=== PATIENT | female | born 1955 | race Caucasian/White ===

== ENCOUNTER 2019-06-09 09:52 | Outpatient (CLI) | payer MEDICARE, MEDICAID, SELFPAY ==
--- NOTE | ~2019-06-09 | XR_ITS ---
EXAMINATION: XR shoulder RT min 2V EXAM DATE: 06/09/2019 10:26 INDICATION: No known recent injury provided at this time. Pain of the right shoulder. TECHNIQUE: The following right shoulder projections obtained: frontal projection with internal rotati on, frontal projection with external rotation, Grashey, and axillary (4+ views). There is no prior s tudy for comparison. FINDINGS: Cervical fusion hardware. No evidence of right shoulder rotator cuff calcific tendinosis. There is mild to moderate glenohumeral, moderate acromioclavicular joint primary osteoarthritis. The re are no acute fractures or dislocations identified. There is no subcutaneous gas. The soft tissue is unremarkable. IMPRESSION: Mild to moderate right shoulder osteoarthritis. Reviewed, dictated and finalized at location B.
== END 2019-06-09 09:53 | disposition home or self-care (01) ==
PROVIDERS: PCP Internal Medicine Gastroenterology; Visit Provider Internal Medicine Gastroenterology
DX: M25.511 Pain in right shoulder (principal); M19.011 Primary osteoarthritis, right shoulder
CPT/HCPCS: 73030

== ENCOUNTER 2022-09-18 07:00 | Outpatient (CLI) | payer MEDICARE, MEDICAID, SELFPAY ==
--- NOTE | ~2022-09-18 | XR_ITS ---
Right Hand Technique: PA, oblique, and lateral views were obtained. Clinical History: Pain and swelling Findings: No acute fracture or dislocation is seen. Osseous alignment is anatomic. There is mild to m oderate degenerative change at the first metacarpophalangeal joint. There is mild degenerative change of the third PIP joint. Remaining joint spaces are preserved. Soft tissues are unremarkable. Impression: Mild to moderate degenerative change of the first metacarpophalangeal joint. Mild degenerative change of the third PIP joint. Reviewed, dictated and finalized at location M. Impression: Mild to moderate degenerative change of the first metacarpophalangeal joint. Mild degenerative change of the third PIP joint.
--- NOTE | ~2022-09-18 | CT_ITS ---
Clinical Indication: Hemorrhage of rectum, abdominal pain, lung mass CT Scan of the Chest, Abdomen, and Pelvis with Contrast: Technique: Contiguous sections were acquired throughout the chest, abdomen, and pelvis after intraven ous administration of 100 cc of Omnipaque 350. Dose reduction technique was used on this scan by uti иринаing automated exposure control and iterative reconstruction technique. The dose-length product (DL P) was 510.06 mGy-cm. COMPARISON: 04/15/2019 Findings: There is no evidence of any significant mediastinal, hilar or axillary lymphadenopathy. Coronary tara ry calcification are present. Pacemaker device in place. Mediastinal vascular structures otherwise ar e unremarkable. There is no evidence of pleural or pericardial effusion. Probable chronic scarring or atelectasis at the right middle lobe and lingula. No suspicious pulmonar y nodule evident. Minimal central intrahepatic biliary prominence may be related to prior cholecystectomy. Stable mild prominence of the main pancreatic duct noted. The spleen, adrenals and kidneys are within normal limi ts. There are atherosclerotic calcifications of the aorta. No lymphadenopathy. No bowel obstruction or bowel wall thickening. There is no evidence to suggest acute appendicitis. Urinary bladder is unremarkable. No pelvic mass evident. No ascites. Impression: No significant pulmonary abnormality or nodule seen. Minimal central intrahepatic biliary prominence may be related to prior cholecystectomy. Stable minimal prominence of the main pancreatic duct. Reviewed, dictated and finalized at [facility]. Impression: No significant pulmonary abnormality or nodule seen. Minimal central intrahepatic biliary prominence may be related to prior cholecy stectomy. Stable minimal prominence of the main pancreatic duct.
[2022-09-18 08:05] LABS: Estimated Glomerular Filt Rate > 60
== END 2022-09-18 07:01 | disposition home or self-care (01) ==
PROVIDERS: PCP Internal Medicine Gastroenterology; Visit Provider Nurse Practitioner Family
DX: K62.5 Hemorrhage of anus and rectum (principal); R10.9 Unspecified abdominal pain; M19.041 Primary osteoarthritis, right hand
CPT/HCPCS: 36415; 71260; 73130; 74177; 80053; 85027; 85652; 86140; Q9967

== ENCOUNTER 2022-09-18 11:27 | Outpatient (CLI) | payer MEDICARE, MEDICAID, SELFPAY ==
[2022-09-18 07:51] LABS: Hematocrit 42.8 % (37.0-47.0); Hemoglobin 13.7 g/dL (12.0-15.0); Mean Corpuscular Hemoglobin 29.5 pg (26-34); Mean Corpuscular Volume 92.2 fl (80-100); Mean Platelet Volume 11.3 fl (7.4-10.4); Platelet Count Result 206 k/mm3 (150-375); Red Blood Count 4.64 M/mm3 (4.2-5.4); Red Cell Distribution Width 14.4 % (11.5-14.5); White Blood Count 5.8 K/mm3 (4.5-10.0)
[2022-09-18 08:27] LABS: Erythrocyte Sedimentation Rate 10 mm/hr (0-20)
[2022-09-18 08:34] LABS: Alanine Aminotransferase 16 U/L (6-35); Albumin Level 4.3 g/dL (3.5-5.1); Alkaline Phosphatase 84 U/L (38-126); Anion Gap 6 mmol/L (8-16); Aspartate Amino Transferase 24 U/L (14-36); Bilirubin,Total 0.4 mg/dL (0.2-1.3); Blood Urea Nitrogen 9 mg/dL (7-17); CRP < 0.5 mg/dL (<1.0); Calcium 8.8 mg/dL (8.4-10.2); Carbon Dioxide 26 mmol/L (22-30); Chloride 109 mmol/L (98-107); Estimated Glomerular Filt Rate > 60; Glucose 99 mg/dL (65-110); Potassium 4.3 mmol/L (3.4-5.0); Sodium 141 mmol/L (137-145)
== END 2022-09-18 11:28 ==
PROVIDERS: Nurse Practitioner Family; PCP Internal Medicine Gastroenterology; Visit Provider Internal Medicine Gastroenterology
DX: K62.5 Hemorrhage of anus and rectum (principal); R10.9 Unspecified abdominal pain; R91.8 Other nonspecific abnormal finding of lung field; S69.91XA Unspecified injury of right wrist, hand and finger(s), initial encounter; X58.XXXA Exposure to other specified factors, initial encounter
CPT/HCPCS: 36415; 80053; 85027; 85652; 86140

== ENCOUNTER 2025-01-01 08:17 | Outpatient (CLI) | payer MEDICARE, MEDICAID, SELFPAY ==
--- OUTSIDE RECORDS SUMMARY | 2025-01-01 09:02 | XMS_ITS | Clinical Summary ---
Author Organization [facility] Address [address] [place] [place] [address] Care Team Providers Care Poundmaster Name Role Phone Lora Cadet MD Primary Care Provider [phone] Source Comments [facility],non-owned Affiliates and Associated Physician Practices is amultiple site organization consisting of ambulatory clinics and hospital sitesin [place], [place], [place] and [place]. This disclosure is being madepursuant to the Care Everywhere program and may not contain all information available regarding this patient. Last updated 17.[facility] Allergies No known active allergies Medications * Be aware that medications may not be up to date on this document. Alwaysverify current medications with the patient. Multiple Vitamins-Mineral s (CENTRUM SILVER PO) Take 1 tablet by mouth once daily Active HYDROcodone-acet aminophen (NORCO) 10-325 MG tablet Take 1 (one) tablet by mouth every 6 hours as needed 06/30/2019 Active LINZESS 145 MCG capsule 03/20/2019 Active zolpidem (AMBIEN) 5 MG tablet Take 1 (one) tablet by mouth every 24 hours Active Eliquis 5 MG tablet TAKE 1 (ONE) TABLET BY MOUTH 2 TIMES DAILY 60 tablet 12/02/2021 Active metoprolol succinate XL 24hr (Toprol XL) 25 MG tablet Take 0.5 (one-half) tablet by mouth once daily 90 tablet 4 05/15/2022 Active citalopram (CeleXA) 10 MG tablet Take 1 (one) tablet by mouth once daily Active estradiol (Estrace) 1 MG tablet Take 1 (one) tablet by mouth once daily Active gabapentin (Neurontin) 300 MG capsule Active lamoTRIgine (LaMICtal) 100 MG tablet Active ondansetron (Zofran) 8 MG tablet Active hydroCHLOROthiaz valarie (Hydrodiuril) 25 MG tablet Take 1 (one) tablet by mouth once daily 90 tablet 3 07/18/2024 Active Active Problems Problem Noted Date Diagnosed Date Dysphagia 09/18/2020 Fatigue 04/03/2020 Cardiac pacemaker in situ 12/25/2019 Paroxysmal atrial fibrillation 09/26/2019 Overview (09/26/2019): Noted on device interrogation in 08/2019 Assessment & Plan (11/17/2019 1:57 PM CDT): She is quite symptomatic from this. Fortunately, she has responded very well to flecainide. She needs to continue flecainide and Eliquis, which I have refilled today to [facility] pharmacy. [id number] of at least 3 (age, gender, HTN). Can followup in 6 months. Assessment & Plan (09/26/2019 1:35 PM CDT): She is having paroxysmal episodes of afib. These appeared to be symptomatic (palpitations). We have initiated treatment with low dose metoprolol, which has seem to calm her symptoms. We also started on anticoagulation due to elevated [id number] of 3. # Cont metoprolol 25mg PO BID # Cont apixaban 5mg PO BID # F/u in 6 months Symptomatic bradycardia 08/18/2019 Assessment & Plan (11/17/2019 1:55 PM CDT): She has done well since PPM implantation in 08/15 Assessment & Plan (09/26/2019 1:34 PM CDT): I personally reviewed remote transmission from August 2019. 7.6% atrial paced. Patient reports symptoms have improved now with pacemaker. For the first several weeks, she had bad shoulder and neck pain, but this has resolved. Incision has also healed well without drainage. # [id number] remote transmission Vasovagal syncope 05/30/2019 Pain in joint of right shoulder 05/30/2019 COPD (chronic obstructive pulmonary disease) Hypertension, poor control 04/22/2019 Anxiety disorder 04/03/2019 Depressive disorder 04/03/2019 Cramp in limb 04/03/2019 Dizziness of unknown cause 04/03/2019 Hip pain 04/03/2019 Osteopenia 04/03/2019 Neck pain 04/03/2019 Pain in face 04/03/2019 Paresthesia of foot 04/03/2019 Paresthesia of hand 04/03/2019 Shoulder pain 04/03/2019 Vitamin D deficiency 04/03/2019 Abdominal bloating 02/15/2019 Abdominal pain 02/15/2019 Chest pain 01/20/2019 Heart palpitations 01/20/2019 Essential hypertension 10/20/2018 Insomnia 09/26/2018 Neuropathy 09/26/2018 Allergic rhinitis 07/09/2016 Degenerative polyarthritis 06/09/2016 Presence of other cardiac implants and grafts Deep vein thrombosis (DVT) 03/03/2016 Family history of heart disease 03/03/2016 Overview (11/21/2021): Father had MO at 62, mother cva Hyperlipidemia 03/03/2016 Shortness of breath 03/03/2016 Tobacco dependence syndrome 03/03/2016 Perceived hearing changes 12/25/2014 Overview (12/27/2021): IMO 2021 Update LPRD (laryngopharyngeal reflux disease) 01/21/20 13 Colon polyp 10/31/2012 Overview (04/03/2019): Overview: 08/15/14 Hyperplastic polyps but poor prep, repeat in 2 yrs with 2 day prep, Dr Olivia Repeat 08/15/16 Viral hepatitis C 09/12/2012 Overview (04/03/2019): Overview: Cured, dr morris Syncope and collapse Assessment & Plan (07/14/2019 2:50 PM CDT): The patient reports long history of syncope and associated pre-syncopal symptoms. These presyncopal symptoms correlate with slow HR 50-60 (see event monitor from Mar 2019). I suspect she is having symptomatic episodes of sinus bradycardia, and she will likely respond to a dual chamber PPM. # schedule for dual chamber PPM when feasible from logistical standpoint. Heart attack Heart murmur Overview (01/20/2019): /AI Full dentures Restless legs syndrome (RLS) Leg cramps Hand cramps Resolved Problems Problem Noted Date Diagnosed Date Resolved Date Diarrhea 02/15/2019 05/01/2019 Pharyngitis 12/05/2018 04/03/2019 Elevated blood-pressure read ing without diagnosis of hypertension 10/17/2018 04/03/2019 Pruritic disorder 10/17/2018 04/03/2019 Bronchopneumonia 06/01/2017 04/03/2019 Ex-smoker 06/01/2017 04/03/2019 Chest wall tenderness 04/22/20172019 H/O osteopenia 09/24/2014 04/03/2019 Overview (04/03/2019): Overview: Osteopenia dexa 04/12/12 under media Bilateral hips T -1.9, osteopenia l spine T 0.6 normal Constipation 10/13/2012 05/01/2019 History of morbid obesity Overview (01/20/2019): max weight 287 lbs Immunizations Immunization Administration Dates Next Due Deal Decor primary monoval ent 12+ yr 0.3mL Purple cap 07/08/2020,06/17/2020 FLU VACCINE QUAD IIV4 SPLIT 0.25 ML IM 0,12/31/2015 HEP A/HEP B 01/04/2014,08/18/2013,07/21/2013 INFLUENZA VACCINE, ADJUVANTE D, QUADR. (FLUAD QUADRIVALENT; 65Y+) (AIIV4) 12/11/2019 INFLUENZA VACCINE, HIGH-DOSE , QUADR. (FLUZONE HIGH-DOSE QUADRIVALENT; 65Y+), 0.7 ML (HD-IIV4) 01/24/2019 Pneumococcal Pcv13 Conj 01/24/2019,09/24/2014 Family History Medical History Relation Name Comments Other Brother Simpson's palsy Anxiety Disorder Father CAD (Coronary Artery Disease) Father Depression Father Other - Cardiac Father mi x 3, sudd en CAD (Coronary Artery Disease) Mother Depression Mother Other Mother suicide CAD (Coronary Artery Disease) Paternal Aunt Alcohol abuse Sister 1 Cirrhosis Sister 1 Renal Disease Sister 1 Anxiety Disorder Sister 2 angy Depression Sister 2 angy Sleep Disorder - Other Sister 2 angy alfred Brain Tumor Sister 3 Cancer - Other Sister 3 ?? Asthma Son CVA Neg Hx Cancer - Breast Neg Hx Cancer - Skin, Melanoma Neg Hx Cancer - Skin, Non Melanoma Neg Hx Eczema Neg Hx Hemophilia Neg Hx Psoriasis Neg Hx Relation Name Status Comments Brother Alive Father (Age 62) Maternal Grandfather Maternal Grandmother Mother Paternal Aunt Paternal Grandfather Paternal Grandmother Sister 1 Sister 2 angy Alive Sister 3 Alive Son Alive Social History Tobacco Use Types Packs/Day Years Used Date Smoking Tobacco: Former Cigarettes 0.5 43 1 973 - 2016 Smokeless Tobacco: Never Tobacco Cessation:Counseling Given: Not Answered Comments:quit age 20 when , restart in 30s for couple years then pick it up off and on Alcohol Use Standard Drinks/Week Comments Not Currently 0 (1 standard drink = 0.6 oz pure alcohol) drink off and on when younger, afraid of pass out spells-no ETOH few years and then holiday glass wine, none since 2017 AUDIT-C Answer Date Recorded Frequency of Alcohol Consumption Never 01/20/2019 Average Number of Drinks Not on file 019 Frequency of Binge Drinking Not on file 12/28 Overall Financial Resource Strain (CARDIA) Answe r Date Recorded Difficulty of Paying Living Expenses Not hard at all 04/03/2019 Hunger Vital Sign Answer Date Recorded Worried About Running Out of Food in the Last Ye ar Never true 04/03/2019 Ran Out of Food in the Last Year Not on file 04/03/2019 PRAPARE - Transportation Answer Date Re corded Lack of Transportation (Medical) No 04/03/2019 Lack of Transportation (Non-Medical) No 04/03/2019 Education Answer Date Recorded What is the highest level of school you have completed or the highest degree you have received? 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 on file Not on fi le Last Filed Vital Signs Vital Sign Reading Time Taken Comments Blood Pressure 144/70 08/09/2024 12:21 PM CDT Pulse 91 08/09/2024 12:21 PM CDT Temperature 36.8 C (98.2 F) 05/15/2022 10:20 AM HEEL PAINTER Respiratory Rate 18 08/19/2019 9:10 AM CDT Oxygen Saturation 99% 08/09/2024 12:21 PM CDT Inhaled Oxygen Concentration - - Weight 68.5 kg (151 lb) 06/01/2024 3:40 PM HEEL PAINTER Height 162.6 cm (5' 4) 06/01/2024 3:40 PM HEEL PAINTER Body Mass Index 25.92 06/01/2024 3:40 PM HEEL PAINTER Plan of Treatment Upcoming Encounters Date Type Department Care Team (Late st Contact Info) Description 03/01/2025 1:00 AM HEEL PAINTER Clinical Support [facility] - Cardiology [address] [address] 05/31/2025 1:00 AM HEEL PAINTER Clinical Support [facility] - Cardiology 1034 [facility], [address] [address] Health Maintenance Due Date Last Done Comments BONE DENSITY TESTING 1955 COLOGUARD (AGES 45-75) - COLON CA SCREENING 1955 COLON MONITORING 1955 COLONOSCOPY - COLON CA SCREENING 1953 CT COLONOGRAPHY - COLON CA SCREENING 1955 Colorectal Cancer Screening 1955 FIT - COLON CA SCREENING 1955 FLEX SIG - COLON CA SCREENING 1955 LIPID TESTING 1955 Opioid Medication Agreement - Annual 1955 DTAP/TDAP/TD VACCINES (1 - Tdap) 1972 ZOSTER VACCINE (1 of 2) 10/11/2003 Respiratory Syncytial Virus (RSV) Vaccine Pt: or over 60 yrs (1 - Risk 60-74 years 1-dose series) 2013 PNEUMOCOCCAL VACCINE 50+ (2 of 2 - PPSV23, PCV20, or PCV21) 03/21/2019 01/24/2019, 09/24/2014 MAMMOGRAM 11/28/2021 11/29/2019 DEPRESSION SCREENING 03/29/2024 MEDICARE AWV CALENDAR YEAR 2024 SCREENING FOR DIABETES 06/01/2024 0, 05/01/2019, 01/04/2014, Additional history exists COVID-19 VACCINE ( - season) 2024 07/08/2020, 06/17/2020 INFLUENZA VACCINE (#1) 2024 0, 12/11/2019, 01/24/2019, Additional history exists HEPATITIS B VACCINE Completed 01/04/2014, 08/18/2013, 07/21/2013 HEPATITIS C SCREENING Completed 01/04/2014 , 01/04/2014, 01/04/2014, Additional history exists HIB VACCINE Aged Out No longer eligi ble based on patient's age to complete this topic HPV VACCINE Aged Out No longer eligi ble based on patient's age to complete this topic MENINGOCOCCAL (Group B) VACCINE SHARED DECISION-MAKING Aged Out No longer eligible based on patient's age to complete this topic MENINGOCOCCAL GROUPS A/C/Y/W VACCINE Aged Out No longer eligible based on patient's age to complete this topic Medical Devices Implanted Type Area Sewer And Drain Technician Device Identifier Shelf Expiration Date Model / Serial / Lot Lead Cp Nv Pace 52cm Strd Elut Pltn Tamy - [id number] Implanted:Qty: 1 on 08/18/2019 by Ren Santos MD at [facility] Pacemaker Heart [employer] 05/18/2021 [id number] / [id number] / Description:RV LEAD Lead Cp Nv Pace 45cm Strd Elut Pltn Tamy - [id number] Implanted:Qty: 1 on 08/18/2019 by Ren Santos MD at [facility] Pacemaker Heart [employer] 05/22/2021 [id number] / [id number] / Description:RA LEAD Pacemkr Jessica Wirelessly Crd - [id number] Implanted:Qty: 1 on 08/18/2019 by Ren Santos MD at [facility] Pacemaker Heart [employer] 11/23/2020 [id number] / [id number] / Description:PACEMAKER Procedures Procedure Name Priority Date/Time Associated Diagnosis Comments CARDIAC PROCEDURE ORDER 11/27/2024 MAMMO BILAT SCREENING Routine 11/29/2019 3:23 PM CDT Screening breast examination BASIC METABOLIC PANEL (CALCIUM TOTAL) AM Draw 08/19/2019 5:00 AM CDT Symptomatic bradycardia HEPATITIS C RNA QUANTITATIVE Routine 01/04/2014 11:24 AM CDT from Last 3 Months or Most Recently Relevant to Health Maintenance Results * CARDIAC PROCEDURE ORDER (11/27/2024) Narrative 11/27/2024 Ordered by an unspecified provider. us Scanned Document CARDIAC SERVICES ORDERABLES Fin al Result * MAMMO BILAT SCREENING (11/29/2019 3:23 PM CDT) Anatomical Region Laterality Modality Breast Bilateral Mammography 12/21/2019 8:16 AM CDT Impressions 12/21/2019 8:19 AM CDT IMPRESSION: No mammographic evidence of malignancy. ASSESSMENT: BI-RADS Category 1: Negative mammogram. RECOMMENDATION: Annual screening mammograms are recommended. This report was electronically signed by QUOC HOLLY M.D. on 12/21/2019 8:19 AM . Narrative 12/21/2019 8:19 AM CDT Bilateral screening mammogram Date: 11/29/2019 3:24 PM Comparison: Multiple outside 3-D mammograms, most recently 04/28/2018 History: Screening mammogram. Technique: The breasts were imaged in multiple views using 3D tomosynthesis with reconstructed/synthetic images and CAD analysis. Findings: No suspicious mass, grouped microcalcification or architectural distortion is seen. The left mediolateral oblique projection was limited due to positioning difficulties with the left arm. No significant change is noted since the prior examination. Breast parenchymal density: There are scattered areas of fibroglandular density. This examination was subjected to CAD analysis. Lora Cadet MD MAMMO ORDERABLES Final Resul t * BASIC METABOLIC PANEL (CALCIUM TOTAL) (08/19/2019 5:00 AM CDT) BUN 10 7 - 26 mg/dL 08/19/2019 5:57 AM [facility] Creatinine 0.7 0.6 - 1.2 mg/dL 08/19/2019 5:57 AM [facility] Sodium 140 136 - 145 mmol/L 08/19/2019 5:57 AM [facility] Potassium 3.8 3.5 - 4.5 mmol/L 08/19/2019 5:57 AM [facility] Chloride 107 98 - 107 mmol/L 08/19/2019 5:57 AM [facility] CO2 25 22 - 29 mmol/L 08/19/2019 5:57 AM [facility] Glucose 104 70 - 115 mg/dL 08/19/2019 5:57 AM [facility] Calcium 8.4 8.4 - 10.2 mg/dL 08/19/2019 5:57 AM [facility] Anion Gap 12 8 - 18 08/19/2019 5:57 AM [facility] BUN/Creatinine Ratio 14 7 - 23 08/19/2019 5:57 AM [facility] Osmolality Calculated 289 270 - 300 mOsm/kg 08/19/2019 5:57 AM [facility] eGFR >60 >60 mL/min/1.7 3 m2 08/19/2019 5:57 AM [facility] Blood BLOOD SPECIMEN / Unknown Lab Venipuncture / Unknown 08/19/2019 5:00 AM CDT 08/19/2019 5:22 AM CDT Saji Camacho MD LAB - CHEMISTRY ORDERABLES Final Result [address] [address], [facility] [phone] * HEPATITIS C RNA QUANTITATIVE PCR (01/04/2014 11:24 AM CDT) Hepatitis C Virus RNA PCR Specimen: 1ml Serum Reference: [id number] Test: Hepatitis C RT-PCR (Quantitative) RESULT Not Detected Reference Range Not Detected INTERPRETATION The quantitative Hepatitis C viral RNA RT-PCR determination was performed on a serum sample and is reported in IU/ml. Hepatitis C viral RNA was not detected. COMMENT The Hepatitis C (HCV) viral RNA analysis utilized a serum sample, real-time reverse embroidery cutter PCR, and is reported as Not Detected/Detected (<50)/Quantity (IU/ml) or >35,000,000 IU/ml. The analytical sensitivity of the assay is 7 IU/ml (95% of samples with this HCV RNA level were detected). Values less than 7 IU/ml are reported as Not Detected (<7 IU/ml); values greater than 7 IU/ml and less than 50 IU/ml are reported as Detected (<50). The linear range is from 50 IU/ml to 35,000,000 IU/ml. Values greater than 35,000,000 IU/ml are reported as >35,000,000 IU/ml. The detection/quantita tion of HCV RNA in serum or plasma is based on the isolation of HCV RNA with reverse embroidery cutter of genomic HCV RNA followed by real-time PCR in the presence of a reference standard RNA. The standard ensures that RNA was isolated, that no general significant inhibitors of the RT-PCR process were present. This test was developed and its performance characteristics determined by the [facility] at [facility]. It has not been cleared or approved by the U.S. Food and Drug Administration. The FDA has determined that such clearance or approval is not necessary. This test is used for clinical purposes. It should not be regarded as investigational or for research. This laboratory is certified under the Clinical Laboratory Improvement Amendments of 1988 (CLIA-88) as qualified to perform high complexity clinical laboratory testing. Test performed at [facility], [address] [place] [id number] This case has been personally reviewed and interpreted by the attending (teaching) pathologist. Final Diagnosis performed by Heriberto Loredo PHD. Electronically signed 01/09/2014 [facility] Blood specimen (specimen) BLOOD SPECIMEN / Unknown 01/04/2014 11:24 AM CDT 01/04/2014 12:25 PM CDT Perez Morris MD LAB - CHEMISTRY ORDERABLES Kandi l Result [facility]) from Last 3 Months or Most Recently Relevant to Health Maintenance Insurance MEDICAID - [facility] UHC MANAGED MEDICARE ADV MEDICAID - [place] [facility] MANAGED MEDICARE ADV Advance Directives * Full Code (Latest Code Status on File) Date Activated Date Inactivated Comments 08/18/2019 10:44 AM 08/19/2019 11:23 AM Care Teams Poundmaster Relationship Specialty Start Date End Date Lora Cadet MD [address] [place] [address] PCP - General 07/27/17
--- OUTSIDE RECORDS SUMMARY | 2025-01-01 09:02 | XMS_ITS | Encounter Summary ---
Author Organization [facility] Address [address] [place] [address] Care Team Providers Care Threading Machine Tender Name Role Phone Lora Cadet MD Primary Care Provider [phone] Reason for Visit * Reason Onset Date Comments Stress Test 07/03/2024 Needing to Sched ule/ Returning Call Encounter Details Date Type Department Care Team (Late st Contact Info) Description 07/03/2024 Telephone [facility] - Centralized Scheduling [address] [place] [address] Tiffanie Cisneros Stress Test (Needing to Schedule/ Returning Call) Social History Tobacco Use Types Packs/Day Years Used Date Smoking Tobacco: Former Cigarettes 0.5 43 1 973 - 2016 Smokeless Tobacco: Never Comments:quit age 20 when pr egnant, restart in 30s for couple years then [...] PM CDT Legal Sex Female 6:20 AM INDUSTRIAL RELATIONS REPRESENTATIVE Gender Identity Female 01/06/2021 2:13 PM CDT Sexual Orientation Straight 01/06/2021 2: 13 PM CDT 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 Pt is returning your call.. she is a bit confused.. she said that she received numerous calls but every time she calls back- no-one remembers calling her.. but she will get the same call again the next day.. Also she was told something about, the test needing to be 'RECODED' before scheduling... I tried tocall you, but line was busy.. Please reach out to patient at your soonest convenience.. Thanks ! documented in this encounter Plan of Treatment Upcoming Encounters Date Type Department Care Team (Late st Contact Info) Description 03/01/2025 1:00 AM INDUSTRIAL RELATIONS REPRESENTATIVE Clinical Support [facility] - Cardiology [address] [facility], [facility] [address] [place] [address] 05/31/2025 1:00 AM INDUSTRIAL RELATIONS REPRESENTATIVE Clinical Support [facility] - Cardiology [address] [facility] [address] [place] [address] documented as of this encounter Visit Diagnoses Not on filedocumented in this encounter Care Teams Threading Machine Tender Relationship Specialty Start Date End Date Lora Cadet MD [address] [place] [address] PCP - General 07/27/17 documented as of this encounter
--- OUTSIDE RECORDS SUMMARY | 2025-01-01 09:02 | XMS_ITS | Encounter Summary ---
Author Organization [facility] Address [address] [facility] [place] [address] Care Team Providers Care Dehydration Unit Operator Name Role Phone Lora Cadet MD Primary Care Provider [phone] Reason for Visit * Reason Onset Date Comments MEDICATION REFILL 02/16/2020 Encounter Details Date Type Department Care Team (Late st Contact Info) Description 02/16/2020 Refill [facility] [address] [place] [address] Jillian Sherman, APNP-[employer] WORKER [address] [phone] MEDICATION REFILL Social History Tobacco Use Types Packs/Day Years [...] and then holiday glass wine, none since 2018 AUDIT-C Answer Date Recorded Frequency of Alcohol [...] PM CDT Legal Sex Female 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 Gender Identity Female 01/06/2021 2:13 PM CDT Sexual Orientation Straight 01/06/2021 2: 13 PM CDT 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 Not on file 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 Not on file Not on fi le documented as of this encounter Plan of Treatment Upcoming Encounters Date Type Department Care Team (Late st Contact Info) Description 03/01/2025 1:00 AM FARM LOAN REPRESENTATIVE Clinical Support [facility] - Cardiology [address] [facility], [place] [id number] [place] [address] 05/31/2025 1:00 AM FARM LOAN REPRESENTATIVE Clinical Support [facility] - Cardiology [address] [facility], [place] [address] [place] [address] documented as of this encounter Visit Diagnoses Not on filedocumented in this encounter Care Teams Dehydration Unit Operator Relationship Specialty Start Date End Date Lora Cadet MD [address] [place] [phone] PCP - General 07/27/17 documented as of this encounter
--- OUTSIDE RECORDS SUMMARY | 2025-01-01 09:02 | XMS_ITS | Data Portability ---
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 She reports pain for many years, getting progressively worse. She has a history of some sort of arthroscopic surgery back in the . She has pain over the front and medial aspects of the knee and has popping when she tries to move it or walk. She now has to use a cane to get around and is unable to stay as active as she wants to. She has previously tried a course of physical therapy and taking meloxicam without improvement. She inquires about getting injections because some of her friends had that with good results. 1+ effusion. Range of motion 5-130. She has tenderness over the medial joint line and also over the patella, with positive grind. Stable varus and valgus stress. Sensation intact to light touch, 2+ DP pulse. X-rays reviewed, demonstrating arthritis of the medial and patellofemoral compartments with joint space narrowing, sclerosis, osteophytes She has osteoarthritis of the knee. We will continue conservative management, since she has failed a course of PT and meloxicam, we discussed next step would be to consider cortisone injection. She wanted proceed with that tolerated well. We will leave follow-up open ended, she may call when she has recurrence of symptoms. The next step would be to either repeat the cortisone injection or discuss gel injections. She is in agreement with the plan. [email or web address] Not available 08/30/2023 10:32:41 11/03/2023 11/03/2023 67-year-old female presents for recheck of left knee. She reports pain for many years, getting progressively worse. At her last appointment we did a cortisone injection. She felt that this helped for about 2-3 weeks but has since worn off. She has done PT and taken meloxicam, which did not help. She is interested in trying gel injections. 1+ effusion. Range of motion 5-130. She has tenderness over the medial joint line and also over the patella, with positive grind. Stable varus and valgus stress. Sensation intact to light touch, 2+ DP pulse. She has osteoarthritis of the knee. We will continue conservative management, since she has failed a course of PT, meloxicam, and cortisone injection, we will try gel injections. We will order them through specialty pharmacy and they will be sent to her home. We will have her return once she receives the injections. She is in agreement with this plan. Not available 11/03/2023 11:05:09 11/26/2023 11/26/2023 67-year-old fema le presents for injection of the left knee. She reports pain for many years, getting progressively worse. She presents today for gel injection. She received the injection from specialty pharmacy and has brought it with her today. Exam unchanged since last visit. SynviscOne injection given without issue. We can see her back as needed for pain. Not available 11/26/2023 09:03:52 05/16/2024 05/16/2024 Assessment: Nicotine smoke: 1 ppd 1984-present (quit 6 years in between) = 35 pack years Cough Dyspnea Plan: The following were reviewed and explained to the patient: primary care/referral note Chest 2 views 07/14/22 RML consolidation Nicotine cessation counseling provided for 4 minutes. Petty for quitting nicotine include getting ready, getting support and encouragement, learning new skills and behaviors and being prepared to handle slips. Tips for dealing with cravings provided. Prevention of subsequent illnesses from nicotine addiction discussed. Comorbidities include but are not limited to hypertension, cerebrovascular disease, coronary heart disease, congestive heart failure, hyperlipidemia, COPD/asthma, peptic ulcer disease, esophagitis/gastri tis, and osteoporosis. Therapy options offered include: Quitting by total abstinence Receiving nicotine replacement therapy Undergoing hypnosis Filling a bupropion or varenicline prescription Enrolling in Quit For Life program Registering at [email or web address] Making a call to 8-150-OKNI-NOW ( ). A strong, clear, personalized message was given to the patient to quit smoking. The patient was urged to set a quit date. We discussed patient's barriers to quitting and I will be of assistance when patient is ready to quit. I encouraged patient to inform friends and family of plans to quit with a request for support. I encouraged the patient to remove all cigarettes from the environment. We reviewed any previous quit attempts and lessons learned from them. I encouraged total abstinence from smoking and advised the patient that drinking alcohol and/or associating with other smokers are associated with failure or relapse. Patient can enroll in [facility]'s smoking cessation class through Connie Pittman RN at . Enrollment is free and classes are held every wednesday of the month from 1:30 pm to 2:30 pm at the conference room next to the cafeteria on the ground floor. The [place] Preventive Services Task Force (USPSTF) recommends annual screening for lung cancer with low-dose computed tomography (LDCT) for adults aged 50 to 80 years who have a 20 pack-year smoking history and currently smoke or have quit within the past 15 years. The [employer] (ACS) similarly recommends screening for individuals aged 50 to 80 years with a 20 pack-year history of smoking. LDCT ordered. Cough/Dyspnea workup will be done as follows: Respiratory allergen panel for [facility] Serum IgE Serum total IgG, IgG1, IgG2, IgG3, IgG4 Jajvd-1-mwygwdvgya n phenotype and level TB stimulated gamma interferon B-type natriuretic peptide (BNP) Eosinophil count Complete pulmonary function testing (PFT). Continue budesonide-formote rol HFA 160/4.5 mcg 2 puffs BID. Gargle after use. The patient does not know how to accurately administer the inhaler. Today, the patient was shown how to take this medication. The proper technique for delivering this medication was instructed. The patient expressed a clear understanding and demonstrated back how to use this medication. Without the proper technique, the patient will not reap the benefits of the treatment as the contents of the inhaler will not reach the lower airways as intended to be. Adherence to therapy is advocated. Nonadherence may lead to treatment failure, further progression of the condition, and other complications. Hospitals admissions are often the result of individuals not taking prescription medications accurately. Alternatively, greater adherence to medication regimens have shown to lower rates of hospitalization and decrease total medical costs in patients with chronic medical conditions. Advocated influenza vaccination annually and pneumonia vaccination NNAMDI. Advocated weight loss through diet and exercise. Patient's ideal body weight according to height and gender is up to 130 lbs. Encouraged patient to adjust caloric intake to maintain/achieve ideal body weight, emphasizing on fruits, vegetables, whole grains, and fat-free or low-fat products. These include lean meats, poultry, fish, beans, eggs, and nuts and foods that are low in saturated fats, trans-fats, cholesterol, salt (sodium), and glycemic index. Stressed the importance of regular exercise up to the patient's capacity limits. In this case, we recommend 20 min daily walking, 2 days a week of resistance training. Patient to monitor BP daily and bring records to PCP for further management. Follow-up: 1 week after PFT and chest CT Not available 05/16/2024 15:02:50 Plan of Treatment Reminders Order Date Submit Date Provider Last Modified By Organization Details Last Modified Time Details Appointments Any 15 2024 08:45A M Ledy hernandez MD Not available Not available Not available Lab HbA1c (hemoglob in A1c), blood 2024 025 [email or web address] [facility], [address], [place], [address], 12/19/2024 15:55:53 microalbu min, urine 2024 025 [email or web address] [facility], [address], [place], [address], 12/19/2024 15:56:02 CMP, serum or plasma 2024 025 [email or web address] [facility], [address], [place], [address], 12/19/2024 15:54:56 CBC w/ auto diff [address], [facility], [address], [place], [address], 12/19/2024 15:55:06 lipid panel, serum [address], [facility], [address], [place], [address], 12/19/2024 15:55:18 TSH + free T4, serum [address], [facility], [address], [place], [address], 12/19/2024 15:55:31 vitamin D, 25-hydrox y, total, serum [address], [facility], [address], [place], [address], 12/19/2024 15:55:42 alpha-1-a ntitrypsi n (aat) phenotype , serum 2024 025 [place] [facility], [facility], [address], [place], [address], 12/29/2024 04:04:16 BNP (B-type natriuret ic peptide), serum or plasma 2024 025 [place] [facility], [facility] [address] [address], [address], [place], [address], 12/29/2024 04:04:16 ige, total, serum 2024 025 [place] [facility], [facility], [address], [place], [address], 12/29/2024 04:04:16 tb (M tuberculo sis), ifn-gamma constance, blood 2024 025 [facility], [address], [address], [place], [address], 12/29/2024 04:04:17 [address] subclasse s 1+2+3+4, serum 2024 025 [facility], [address], [address], [place], [address], 12/29/2024 04:04:17 respirato ry allergen panel, [facility] A, serum 2024 025 [facility], [address], [address], [place], [address], 12/29/2024 04:04:17 respirato ry allergen panel - [facility] b 2024 025 [facility], [address], [address], [place], [address], 12/29/2024 04:04:17 eosinophi ls, quant, blood 2024 025 [facility], [address], [address], [place], [address], 12/29/2024 04:04:17 Referral pulmonolo gist referral - Please call patient to schedule an appointme nt. Thank you. 2024 025 [email or web address] Elian Gamez MD, [address] [place], [address], 12/18/2024 16:53:41 pain managemen t referral - Please call patient to schedule an appointme nt. Thank you. 2024 025 ANA Vasquez MD, [address] [place], [address], 12/18/2024 16:20:38 gynecolog ist referral - Please call patient to schedule an appointme nt. Thank you. 2024 025 ANA Chang MD, [address] [facility] [address], [place], [address], 12/12/2024 12:16:29 Procedures knee aspiratio n/injecti on (PROC) 2023 024 [email or web address] In-Office Order, Internal Use Only DO Not Attach Compendium DO Not Attach Compendium, Do Not Delete/merge, [id number] 11/26/2023 08:50:59 injection /aspirati on joint/bur sa (PROC) 2023 024 [email or web address] 1 In-Office Order, Internal Use Only DO Not Attach Compendium DO Not Attach Compendium, Do Not Delete/merge, 08/30/2023 10:35:14 Surgeries None recorded. Imaging MAMMO, screening , digital, bilateral - Please call patient to schedule. [facility], [address] [facility], [place], [address], 12/11/2024 18:25:34 LDCT, chest, for lung cancer screening - Please call patient to schedule. 2024 025 [facility], [address] [facility], [place], [address], 12/11/2024 18:25:34 DEXA, axial skeleton - Please call patient to schedule. 2024 025 [facility], [address] [facility], [place], [address], 12/11/2024 18:25:34 LDCT, chest, for lung cancer screening - Please call patient to schedule. [address] [facility], [address], [place], [address], 06/21/2024 11:44:22 Medication Orders bupivacai ne HCl 0.5 % (5 mg/mL) injection solution 2023 024 [email or web address] 2 [facility]/Pharmacy #[id number], [address], [place], [address], 09/24/2023 14:13:02 Kenalog 10 mg/mL suspensio n for injection 2023 024 [email or web address] 2 [facility]/Pharmacy #[id number], [address], [place], [address], 09/24/2023 14:13:58 Patient TargetsNo targets recorded. Patient Instructions Encounter Date Encounter Id Patient Instructions Last Modified By Organization Details Last Modified Time 05/16/2024 [id number] complete PFT w/ post bronchodilator spirometry* - Please call patient to schedule. NPAN [id number] per payor portal, ref #[id number]. [email or web address] Not available 06/21/2024 11:43:10 12/11/2024 [id number] diabetic eye exam* ATHENAFAX Not availa ble 12/12/2024 18:01:09 Reason for Referral Darkroom Technician Referral for We woman health examination Please call patient to schedule an appointment. Thank you. Referring Physician: Ldey Edwards, Internal Medicine, Encounter Date: 12/11/2024 Glass Forming Engineer Referral for D yspnea on exertion Please call patient to schedule an appointment. Thank you. Referring Physician: Ledy Edwards Internal Medicine, Encounter Date: 12/11/2024 Pain Management Referral for Chronic pain Please call patient to schedule an appointment. Thank you. Referring Physician: Ledy Edwards Internal Medicine, Encounter Date: 12/11/2024 Results Created Date Observation Date Name Description Value Unit Range Abnormal Flag Note LastModifiedBy Organization Detail LastModifiedTime 05/16/19 25 07/14/2022 XR, chest , 2 view No observ ation record ed. BARCODE Not Available 2024 17:58:48 Result Notes None recorded. Problems Name Problem SNOMED Code Status Onset Date Resolution Date Notes Provider Name and Address Organization Details Recorded Time Osteopenia 953168356 Active Not Available [facility] 3 06:14:08 Essential hypertensi on 31830234 Active 2018 Ledy mckeon MD [address], [address], [place], [address] , [facility] 5 17:22:16 Chronic atrial fibrillati on 720630980 Active 2019 Not Available [facility] 3 06:14:08 Cardiac pacemaker in situ 319825262 Active 2019 Not Available [facility] 3 06:14:08 Adenomatou s polyp of colon 607969974 Active 2021 Not Available [facility] 3 06:14:08 Irritable bowel syndrome characteri zed by constipati on 054112288 Active 2021 Not Available [facility] 3 06:14:08 Osteoarthr itis of left knee joint 9108402222167 09 Active 2023 EDEN Bobby null, [facility] 4 08:57:21 Smoker 79773170 Active 2024 Ledy mckeon MD [address], [address], [place], [address] , [facility] 5 17:24:05 Vitamin D below reference range 395484517 Active 2024 Ledy mckeon MD [address], [address], [place], [address] , [facility] 5 17:22:29 Dyspnea on exertion 68586730 Active 2024 Ledy mckeon MD [address], [address], [place], [address] , [facility] 17:24:00 Insomnia 058227032 Active 2024 Ledy mckeon MD [address], [address], [place], [address] , [facility] 17:40:04 Chronic pain syndrome 882089744 Active 2024 Ledy mckeon MD [address], [address], [place], [address] , [facility] 17:41:25 Chronic pain 58702252 Active 2024 Ledy mckeon MD [address], [address], [place], [address] , [facility] 17:41:33 Allergic rhinitis 02432516 Active 2024 Ledy mckeon MD [address], [place], [address] , 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 Procedures Surgical History Date Name Laterality Status Provider Name and Address Organization Details Recorded Time 11/26/19 24 Synvisc Injection completed Sophie Ghosh NP [address], [address], [place], [address], [facility] 11/26/2023 09:04:18 08/30/19 24 Ortho - Cortisone Injection completed Huy Mejia MD [address], [address], [place], [address], [facility] 08/30/2023 10:32:50 Tonsillectomy completed Not Available [facility] 05/27/2022 06:10:51 Knee Surgery completed Not Available [facility] 05/27/2022 06:10:51 Back Surgery completed Not Available [facility] 05/27/2022 06:10:51 Gastric Bypass completed Not Available [facility] 05/27/2022 06:10:51 Arthroscopic Surgery completed Not Available [facility] 05/27/2022 06:10:51 Pacemaker completed Margie Munguia MA [facility] 05/16/2024 14:27:42 Hy[address]rectomy completed [address] [facility] 12/11/2024 17:02:57 Imaging Results None recorded. Procedure Notes None recorded. Medical Equipment None Reported. Allergies Allergen ID Allergen Name Allergen Category Reaction Reaction Severity Criticality Documentation Date Start Date Code Code System Note Provider Name and Address Organization Details Recorded Time 96467 Cymbalta medicatio n abdominal pain nausea severe moderate Not available 05/27/2022 93753 4 RxNorm Not Available [facility] 06:18:21 Medications Name Sig Start Date Stop Date Status Note LastModified by Organization Details LastModified Time carisoprodo l 350 mg tablet TAKE 1 TABLET BY MOUTH TWICE A DAY 12/11 completed Not Available Not Available Not Available cyclobenzap rine 10 mg tablet 08/18 completed Not Available Not Available Not Available buspirone 5 mg tablet TAKE 1 TABLET BY MOUTH DAILY X7 DAYS, THEN 1 TABLET BY MOUTH TWICE DAILY 10/26 completed Not Available Not Available Not Available doxycycline hyclate 100 mg capsule 04/21 completed Not Available Not Available Not Available paroxetine 10 mg tablet 06/02 completed Not Available Not Available Not Available trazodone 50 mg tablet TAKE 1 TABLET BY MOUTH EVERY DAY AT BEDTIME 10/26 completed Not Available Not Available Not Available cetirizine 10 mg tablet TAKE 1 TABLET BY MOUTH EVERY DAY active Not Available Not Available No t Available atorvastati n 10 mg tablet 04/21 completed Not Available Not Available Not Available azithromyci n 250 mg tablet TAKE 2 TABLETS NOW AND 1 TABLET ON DAYS 2-5 02/28 completed Not Available Not Available Not Available alprazolam 1 mg tablet 08/18 completed Not Available Not Available Not Available benzonatate 200 mg capsule TAKE ONE CAPSULE EVERY EIGHT HOURS NEEDED FOR COUGH 12/11 completed Not Available Not Available Not Available citalopram 10 mg tablet TAKE 1 TABLET BY MOUTH EVERY DAY 05/16 completed Not Available Not Available Not Available hydrocodone 5 mg-acetamin ophen 325 mg tablet Take 1 tablet every 6 hours by oral route. 09/23 completed Not Available Not Available Not Available ondansetron HCl 8 mg tablet active Not Available Not Available Not Available meloxicam 15 mg tablet TAKE 1 TABLET BY MOUTH EVERY DAY 09/23 completed Not Available Not Available Not Available naltrexone 50 mg tablet active Not Available Not Available Not Available ondansetron HCl 4 mg tablet Take 1 tablet 3 times a day by oral route as needed. 08/21 completed Not Available Not Available Not Available bupivacaine HCl 0.5 % (5 mg/mL) injection solution Take 4 mL by injection route. 09/23 completed Not Available Not Available Not Available clonazepam 0.5 mg tablet Take 1 tablet twice a day by oral route. 08/21 completed Not Available Not Available Not Available lithium carbonate ER 300 mg tablet,exte nded release 08/21 completed Not Available Not Available Not Available triamcinolo ne acetonide 0.5 % topical ointment 04/11 completed Not Available Not Available Not Available amlodipine 2.5 mg tablet 04/21 completed Not Available Not Available Not Available prochlorper azine maleate 10 mg tablet active Not Available Not Available No t Available sulfamethox azole 800 mg-trimetho prim 160 mg tablet 04/11 completed Not Available Not Available Not Available hydrocodone 10 mg-acetamin ophen 325 mg tablet TAKE 1 TABLET BY MOUTH FOUR TIMES DAILY FOR CHRONIC PAIN active Not Available Not Available No t Available omeprazole 40 mg capsule,del ayed release TAKE 1 CAPSULE BY MOUTH EVERY DAY WITH FOOD 09/23 completed Not Available Not Available Not Available aspirin 81 mg tablet,catina yed release Take 1 tablet every day by oral route. 08/21 completed Not Available Not Available Not Available tramadol 50 mg tablet active Not Available Not Available No t Available triamcinolo ne acetonide 0.1 % topical cream APPLY THIN COAT TO AFFECTED AREA TWICE A DAY 04/11 completed Not Available Not Available Not Available butalbital- acetaminoph en-caffeine 50 mg-325 mg-40 mg tablet TAKE 1 TABLET BY MOUTH THREE TIMES A DAY NEEDED 09/23 completed Not Available Not Available Not Available lamotrigine 25 mg tablet active Not Available Not Available Not Available alprazolam 0.25 mg tablet TAKE 1 TABLET BY MOUTH THREE TIMES DAILY NEEDED 05/25 completed Not Available Not Available Not Available citalopram 20 mg tablet 20 MG ORALLY DAILY 09/23 completed Not Available Not Available Not Available prednisolon e acetate 1 % eye drops,suspe nsion 06/02 completed Not Available Not Available Not Available estradiol 1 mg tablet TAKE 1 TABLET BY MOUTH DAILY active Not Available Not Available No t Available oxycodone-a cetaminophe n 10 mg-325 mg tablet TAKE 1 TABLET BY MOUTH FOUR TIMES DAILY FOR CHRONIC PAIN 12/11 completed Not Available Not Available Not Available Kenalog 10 mg/mL suspension for injection Take 1 mL by injection route. 09/23 completed [facility]: [phone] Not Available Not Available Not Available baclofen 10 mg tablet active Not Available Not Available No t Available cephalexin 500 mg capsule TAKE 1 CAPSULE BY MOUTH TWICE A DAY 08/16 completed Not Available Not Available Not Available paroxetine 20 mg tablet Take 1 tablet every day by oral route. 10/26 completed Not Available Not Available Not Available triamcinolo ne acetonide 0.1 % topical ointment APPLY 1 GRAM TOPICALLY TO AFFECTED AREA TWICE A DAY 08/16 completed Not Available Not Available Not Available prednisone 50 mg tablet 04/21 completed Not Available Not Available Not Available hydroxyzine HCl 25 mg tablet TAKE 1 TABLET TWICE A DAY BY ORAL ROUTE NEEDED. 06/16 completed Not Available Not Available Not Available hydrochloro thiazide 25 mg tablet TAKE 1 TABLET BY MOUTH DAILY active Not Available Not Available No t Available zolpidem 5 mg tablet TAKE 1 TABLET BY MOUTH EVERY DAY NEEDED. NO ALCOHOL OR DRIVING,D O NOT TAKE WITH OPIATES active Not Available Not Available No t Available gabapentin 100 mg capsule TAKE 1 CAPSULE BY MOUTH TWICE A DAY active Not Available Not Available No t Available metoprolol succinate ER 25 mg tablet,exte nded release 24 hr TAKE 1/2 TABLET BY MOUTH DAILY 08/16 completed Not Available Not Available Not Available ergocalcife rol (vitamin D2) 1,250 mcg (50,000 unit) capsule TAKE 1 CAPSULE BY MOUTH ONE TIME PER WEEK 08/21 completed Not Available Not Available Not Available clobetasol 0.05 % topical ointment APPLY TO AFFECTED AREA TWICE A DAY FOR 4 WEEKS 09/23 completed Not Available Not Available Not Available ibuprofen 600 mg tablet TK 1 T PO Q 8 H PRN P TK WITH FOOD 08/21 completed Not Available Not Available Not Available polyethylen e glycol 3350 17 gram/dose oral powder DISSOLVE ONE CAPFUL IN TWO GLASSES OF CLEAR LIQUID AND DRINK EVERY 30 MINS X 6 DOSES 08/20 completed Not Available Not Available Not Available levofloxaci n 500 mg tablet 02/11 completed Not Available Not Available Not Available levofloxaci n 750 mg tablet TAKE ONE TABLET DAILY FOR SEVEN DAYS 12/11 completed Not Available Not Available Not Available zolpidem 10 mg tablet TAKE 1 TABLET BY MOUTH EVERY DAY 04/11 completed Not Available Not Available Not Available methylpredn isolone 4 mg tablets in a dose pack TAKE 6 TABLETS ON DAY 1 DIRECTED ON PACKAGE AND DECREASE BY 1 TAB EACH DAY FOR A TOTAL OF 6 DAYS 12/11 completed Not Available Not Available Not Available albuterol sulfate HFA 90 mcg/actuati on aerosol inhaler INHALE TWO PUFFS BY MOUTH EVERY 4 TO 6 HOURS NEEDED FOR SHORTNESS OF BREATH 12/11 completed Not Available Not Available Not Available hydrocodone 10 mg-acetamin ophen 650 mg tablet active Not Available Not Available No t Available Zoloft 25 mg tablet Take 1 tablet every day by oral route. 02/11 completed Not Available Not Available Not Available hydroxyzine HCl 10 mg tablet TAKE 1 TABLET BY MOUTH TWICE A DAY NEEDED 09/23 completed Not Available Not Available Not Available fluticasone propionate 50 mcg/actuati on nasal spray,suspe nsion INSTILL 1 SPRAY IN EACH NOSTRIL EVERY NIGHT BEFORE BED active Not Available Not Available No t Available sertraline 50 mg tablet TAKE 1 TABLET BY MOUTH EVERY DAY 05/16 completed Not Available Not Available Not Available lamotrigine 100 mg tablet active Not Available Not Available Not Available naproxen 500 mg tablet TAKE 1 TABLET BY MOUTH TWICE A DAY active Not Available Not Available No t Available amoxicillin 875 mg-potjarenu m clavulanate 125 mg tablet TAKE 1 TABLET ORAL ROUTE EVERY 12 HOURS FOR 10 DAYS 09/23 completed Not Available Not Available Not Available Actonel 35 mg tablet Take 1 tablet(s) EVERY WEEK by oral route at least 30 min before any food, drink or medicatio ns 02/11 completed Not Available Not Available Not Available ribavirin 200 mg tablet active Not Available Not Available Not Available metoprolol tartrate 25 mg tablet TAKE 1 TABLET BY MOUTH TWICE A DAY 08/16 completed Not Available Not Available Not Available duloxetine 30 mg capsule,del ayed release TAKE 1 CAPSULE BY MOUTH EVERY DAY 08/21 completed Not Available Not Available Not Available lactulose 10 gram/15 mL oral solution 08/20 completed Not Available Not Available Not Available Flovent HFA 44 mcg/actuati on aerosol inhaler INHALE 2 PUFFS BY MOUTH TWICE A DAY 09/23 completed Not Available Not Available Not Available ramelteon 8 mg tablet TAKE 1 TABLET EVERY DAY BY ORAL ROUTE NEEDED. 09/23 completed Not Available Not Available Not Available zolpidem ER 6.25 mg tablet,exte nded release,mul tiphase TAKE 1 TABLET BY MOUTH EVERYDAY AT BEDTIME 12/11 completed Not Available Not Available Not Available Amitiza 24 mcg capsule 08/18 completed Not Available Not Available Not Available budesonide- formoterol HFA 160 mcg-4.5 mcg/actuati on aerosol inhaler INHALE 2 PUFFS BY MOUTH TWICE A DAY 12/11 completed Not Available Not Available Not Available Golytely 236 gram-22.74 gram-6.74 gram-5.86 gram oral solution DIRECTED 10/26 completed Not Available Not Available Not Available levocetiriz ine 5 mg tablet 04/21 completed Not Available Not Available Not Available Synvisc-One 48 mg/6 mL intra-artic ular syringe Take 6 mL by intraarti cular route as directed, for left knee osteoarth ritis. 12/11 completed Not Available Not Available Not Available PEG-3350 with flavor packs 420 gram oral solution active Not Available Not Available Not Available Linzess 145 mcg capsule Take 1 capsule every day by oral route as needed for 90 days. 06/09 completed Not Available Not Available Not Available Linzess 290 mcg capsule TAKE 1 CAPSULE BY MOUTH DAILY BEFORE MEALS FOR 30 DAYS 10/26 completed Not Available Not Available Not Available Eliquis 5 mg tablet TAKE 1 TABLET BY MOUTH TWICE A DAY 06/16 completed Not Available Not Available Not Available Brisdelle 7.5 mg capsule Take 1 capsule every day by oral route. 02/11 completed Not Available Not Available Not Available Fluvirin 6966-7209 45 mcg (15 mcg x 3)/0.5 mL intramuscul ar suspension ADM 0.5ML UTD 04/21 completed Not Available Not Available Not Available Sovaldi 400 mg tablet active Not Available Not Available No t Available Belsomra 5 mg tablet TAKE 1 TABLET BY MOUTH EVERYDAY AT BEDTIME 09/23 completed Not Available Not Available Not Available Linzess 72 mcg capsule 04/21 completed Not Available Not Available Not Available Fluarix Quad 3133-0710 (PF) 60 mcg (15 mcg x 4)/0.5 mL IM syringe 04/21 completed Not Available Not Available Not Available Ibsrela 50 mg tablet Take 1 tablet twice a day by oral route. 06/16 completed Not Available Not Available Not Available Vitals Date Recorded Heart rate Heart rate Respiratory rate Provider Name and Address Organization Details Last Updated DateTime 05/16/2024 89 /min 89 /min 15 /min Elian Gamez MD [address] [facility] [address], [address], [facility] [employer] [place] 05/16/2024 15:03:35 Date Recorded Body height Body mass index (BMI) Body weight Body temperature Oxygen saturation Oxygen saturation in Arterial blood by Pulse oximetry Systolic And Diastolic Provider Name and Address Organization Details Last Updated DateTime 162.56 cm 26 kg/m2 09684.6 g 97.7 [degF] 98 % 98 % 128/72 mm[Hg] Margie Munguia MA [employer] 14:21:26 Date Recorded Body height Body mass index (BMI) Body weight Pain severity - 0-10 verbal numeric rating [Score] - Reported Provider Name and Address Organization Details Last Updated DateTime 08/30/2023 162.56 cm 24.9 kg/m2 80251.89 g 1 Maricruz Mane Liyah [facility] [employer] [facility] 08/30/2023 10:12:23 Date Recorded Body height Body mass index (BMI) Body weight Pain severity - 0-10 verbal numeric rating [Score] - Reported Provider Name and Address Organization Details Last Updated DateTime 11/03/2023 162.56 cm 25.4 kg/m2 91578.67 g 7 Maricruz Mane [facility] [employer] [facility] 11/03/2023 08:55:46 Date Recorded Body height Body mass index (BMI) Body weight Pain severity - 0-10 verbal numeric rating [Score] - Reported Provider Name and Address Organization Details Last Updated DateTime 11/26/2023 162.56 cm 25.2 kg/m2 85485.08 g 7 Maricruz Mane [facility] [employer] [facility] 11/26/2023 08:48:48 Date Recorded Body height Body mass index (BMI) Body weight Body temperature Heart rate Oxygen saturation Oxygen saturation in Arterial blood by Pulse oximetry Pain severity - 0-10 verbal numeric rating [Score] - Reported Systolic And Diastolic Provider Name and Address Organization Details Last Updated DateTime 162.56 cm 26.1 kg/m2 23035.0 4 g 98.4 [degF] 70 /min 98 % 98 % 7 140/80 mm[Hg] Margie Munguia MA [facility] [employer] [facility] 16:59:46 Social History Question Answer Notes LastModified by Organizat ion Details LastModified Time Tobacco Smoking Status Current Every Day Smoker Not Available [employer] 05/27/2022 06:10:21 Are You Blind Or Do You Have Difficulty Seeing? No [id number] Information not available 05/27/2022 What Is Your Level Of Caffeine Consumption? Moderate Information not available 05/16/2024 In The 14 Days Before Symptom Onset, Have You Had Close Contact With A Laboratory-confirm ed COVID-19 While That Case Was Ill? No Information n ot available 05/16/2024 In The 14 Days Before Symptom Onset, Have You Had Close Contact With A Person Who Is Under Investigation For COVID-19 While That Person Was Ill? No Information not available 05/16/2024 Are You Deaf Or Do You Have Serious Difficulty Hearing? No [id number] Information not available 05/27/2022 What Type Of Diet Are You Following? REGULAR [id number] Information not available 05/27/2022 Do You Have An Electrostatic Air Filter? No Information not available 05/16/2024 Have There Been Any Changes To Your Family Or Social Situation? No Information no t available 12/11/2024 Do You Have A Humidifier? Yes Information not available 05/16/2024 Do You Use Insect Repellent Routinely? No Information not available 12/11/2024 Where Do You Live? Apartment Inform ation not available 05/16/2024 Do You Have Moisture Problems In Your Home? No Information not available 05/16/2024 What Was The Date Of Your Most Recent Tobacco Screening? 12/11/2024 Information not available 12/11/2024 How Many Children Do You Have? 1 Information not available 05/16/2024 Do You Have Any Pets? Yes Information not available 05/16/2024 What Is Your Relationship Status? Information not available 12/11/2024 Do You Use Your Seat Belt Or Car Seat Routinely? Yes Information not available 05/16/2024 Do You Have Smoke And Carbon Monoxide Detectors In Your Home? Yes Information not available 05/16/2024 At What Age Did You Start Smoking Tobacco? 28 Information not available 05/16/2024 Are You Passively Exposed To Smoke? Yes Information no t available 05/16/2024 Are There Any Smokers In Your House? No Information not available 12/11/2024 How Much Tobacco Do You Smoke? 0.25 PPD Information not available 05/16/2024 Do You Use Sunscreen Routinely? No Information not available 05/16/2024 Have You Recently Traveled Abroad? No MIGRATION.[id number] Information not available 05/27/2022 Do You Have Difficulty Walking Or Climbing Stairs? No MIGRATION.[id number] Information not available 05/27/2022 Do You Have Any Dietary Restrictions? No Information not available 05/16/2024 Sex: Female Functional Status Question Answer Note LastModified by Organizat ion Details LastModified Time Do you use any illicit or recreational drugs? No Information not available 05/16/2024 Do you or have you ever used any other forms of tobacco or nicotine? No Information not available 05/16/2024 What is your level of alcohol consumption? None [email or web address] Information not available 11/03/2023 Are you currently employed? No Retired Information not available 05/16/2024 Have you been exposed to chemicals or toxins? No Not that aware of but lives in [place] Information not available 05/16/2024 Do you have transportation difficulties? No [id number].[id number] Information not available 05/27/2022 Are you able to walk independently without assistance or assistive devices? [employer]WOREST [id number].[id number] Information not available 05/27/2022 Do you have difficulty doing errands alone? No MIGRATION.[id number] Information not available 05/27/2022 Are you able to care for yourself independently? Yes MIGRATION.[id number] Information not available 05/27/2022 Do you have difficulty dressing, bathing, grooming, or toileting? No MIGRATION.[id number] Information not available 05/27/2022 What is your exercise level? None Information not available 05/16/2024 Mental Status Question Answer Note LastModified by Organizat ion Details LastModified Time Do you feel stressed (tense, restless, nervous, or anxious, or unable to sleep at night)? [id number] Information not available 05/16/2024 Do you have difficulty concentrating, remembering or making decisions? No [id number] 26 Information not available 05/27/2022 Family History Relationship Description Onset Age of this Age Resolved Age Notes LastModified by Organization Details LastModified Time Paternal Uncle Heart disease [email or web address] Not available 2024 14:46:47 Paternal Aunt Heart disease [email or web address] Not available 2024 14:46:51 Father Myocardial infarction [email or web address] Not available 05/16 14:47:14 Sister Hepatic failure [email or web address] Not available 2024 14:47:35 Sister Alcoholism Not available 05/16/2024 14:47:44 Sister Neoplasm of brain [email or web address] Not available 2024 14:47:57 Medical History Condition Response ARTHRITIS Y USE OF NSAIDS Y HEART ARRHYTHMIA Y Gynecological History Statement/Question Response How many live births 1 Date of Last Colonoscopy Date of Last Mammogram Date of LMP Most Recent Bone Density Date of Last Pap Current Control Method Hysterectom y Obstetrics History GPAL:G 1 P 1 0 0 1 Type Value Multiple Births 0 Full Term 1 Induced 0 Spontaneous 0 Premature 0 Living 1 Ectopics 0 Total 1 Immunizations Vaccine Type Date Status Note Provider Nam e and Address Organization Details Recorded Time Influenza, split virus, trivalent, preservative 3 completed Not Available [facility] 12/11/2024 16:39:53 Hep A-Hep B 4 completed Not Available [facility] 12/11/2024 16:39:53 Hep A-Hep B 4 completed Not Available [facility] 12/11/2024 16:39:53 Hep A-Hep B 4 completed Not Available [facility] 12/11/2024 16:39:53 Pneumococcal conjugate PCV 13 5 completed Not Available [facility] 12/11/2024 16:39:53 Influenza, split virus, quadrivalent, preservative 6 completed Not Available [facility] 12/11/2024 16:39:53 pneumococcal polysaccharide PPV23 7 completed Not Available [facility] 12/11/2024 16:39:53 Influenza, split virus, trivalent, PF 7 completed Not Available [facility] 12/11/2024 16:39:53 Influenza, split virus, quadrivalent, PF 8 completed Not Available [facility] 12/11/2024 16:39:53 Influenza, high-dose, trivalent, PF 9 completed Not Available [facility] 12/11/2024 16:39:53 Pneumococcal conjugate PCV 13 9 completed Not Available [facility] 12/11/2024 16:39:53 Influenza, split virus, quadrivalent, preservative 0 completed Not Available [facility] 12/11/2024 16:39:53 Influenza, high-dose, quadrivalent, PF 2 completed Not Available [facility] 12/11/2024 16:39:53 Pneumococcal conjugate PCV20, polysaccharide SOU762 conjugate, adjuvant, PF 3 completed Not Available [facility] 12/11/2024 16:39:53 Influenza, adjuvanted, quadrivalent, PF 3 completed Not Available [facility] 12/11/2024 16:39:53 COVID-19, mRNA, LNP-S, PF, 30 mcg/0.3 mL dose 1 completed Not Available [facility] 05/27/2022 06:18:09 COVID-19, mRNA, LNP-S, PF, 30 mcg/0.3 mL dose 1 completed Not Available [facility] 05/27/2022 06:18:09 pneumococcal, unspecified formulation 8 completed Not Available [facility] 05/27/2022 06:18:09 Influenza, split virus, quadrivalent, preservative 8 completed Not Available [facility] 05/27/2022 06:18:09 Past Encounters Encounter ID Performer Location Encounter Start Date Encounter Closed Date Diagnosis/Indication Diagnosis SNOMED-CT Code Diagnosis ICD10 Code Diagnosis IMO Codes Diagnosis Note [id number] _ATHN_MIGR ATION_1 _ATHENA_M IGRATION_ DEFAULT_1 _1 , 08/20/2021 00:00:00 08/20/2021 15:31:36 [id number] _ATHN_MIGR ATION_1 _ATHENA_M IGRATION_ DEFAULT_1 _1 , 02/04/2022 00:00:00 02/04/2022 14:50:36 [id number] Sophie Ghosh NP [facility] [address], [place] [phone] 10/26/2022 09:11:35 10/26/2022 10:03:14 Pain of bilateral hip joints [id number] 8693518 M25.551 M25.886 [id number] Huy Mejia MD [facility] [place] [address] [place] [address] 05/26/2023 13:46:41 05/26/2023 14:48:24 Pain of right hand 4523900453 89853 M79.641 Open fract ure finger distal phalanx, tuft 509184363 S62.639B [id number] MD THEO [facility] [place] [address] [place] [address] 06/04/2023 09:56:56 06/04/2023 10:16:54 Open fracture finger distal phalanx, tuft 622029534 S62.639B [id number] Huy Mejia MD [address], [facility] [address] [place] [address] 08/30/2023 10:07:12 08/30/2023 10:38:47 Pain of left knee joint 4337492432 21731 M25.225 [id number] Huy Mejia MD [address] [place] [address] [place] [address] 11/03/2023 08:43:10 11/03/2023 09:31:34 Pain of left knee joint 3825092961 60450 M25.562 Osteoarthr itis of left knee joint 7607557981 78211 M17.12 [id number] Huy Mejia MD [facility] [place] [address] [place] [address] 11/26/2023 08:45:20 11/26/2023 09:07:29 Osteoarthritis of left knee joint 1114071563 24145 M17.12 Lot [id number] MD THEO [facility] [address], [address] [place] [address] 05/16/2024 14:01:58 05/16/2024 15:27:15 Dyspnea on exertion 79341071 R06.09 R05.9 T78.40XA D89.9 Smoker 59145270 F17.218 F17.219 Z87.840 [id number] Ledy mckeon MD [facility] [place] [address] [facility] [address] [facility] [place] [address] 12/11/2024 16:38:19 12/11/2024 17:43:46 Screening due 562999997 Z13.9 [id number] C-scope: 09/16/2021 : Dr Wellington Mammogram: Get this if not done PAP: Get this DEXA: Get this Get yearly flu shotGet tdap if not doneCan do shingrix vaccineCan do COVID 19 boosterCan do RSV vaccine RTC in 3 months,do labs, ER if worse, she is very appreciati ve to this plan of care Screening mammography 24 920528 Z12.31 35757560 Postmenopausal state 764 75610 Z78.0 306360 Essential hypertension 92367334 I10 19266 On HCTZ 25mg dailyGet labs Sees her cardiologi st Dr Santos in [place] Vitamin D below reference range 795456837 R79.89 [id number] Well woman health examination 874186856 Z01.419 974519 History of irritable bowel syndrome 6720867505 9100 Z87.[id number] Wellington GI Dyspnea on exertion 6084 5006 R06.02 [id number] Does need to see pulmonary as she has seen him before Smoker 34618275 F17.200 987997 Advised to quit!Get LDCT done Insomnia 519768400 G47.0 0 [id number] Has taken ambien in the past, will renewShe is on opiates, advised to take sparingly as needed and she does state that he pain management MD has suggested she get back on the ambienShe was told that she may need to be on morphine for sleep but she does not want this Chronic pain 18042901 G8 9.[id number] Solano gabapentin On hydrocodon eUnderstan ds that she must get these thru her pain management History of endocrine disorder 413109822 Z87.898 [id number] Get labsNot on any meds Allergic rhinitis 327210 04 J30.9 [id number] On Sumaya alfaro Health Concerns Section Related Observation LastModified by Organization Detai ls LastModified Time None Recorded Concern Status LastModified by Organization Details LastModified Time None Recorded Advance Directives Directive None Recorded Payers Insurance Date Sequence Insurance Name Policy Number Policy Howard Covered Member ID Howard Member ID Guarantor Name 12/11/2024 1 [facility] (MEDICARE REPLACEMENT/AD VANTAGE - PPO) [id number] Fabi Sharmaine [id number] Fabi Sharmaine 12/11/2024 1 [facility] (MEDICARE REPLACEMENT/AD VANTAGE - HMO) Fabi Sharmaine [id number] Fabi Sharmaine 12/11/2024 2 [place] WHEN MEDICARE OR MEDICARE REPLACEMENT PRIMARY) Fabi Sharmaine [id number] Fabi Sharmaine Notes Date Note Type Note Provider Name and Address Organization Details Recorded Time text/html Primary care/Referring provider: Lora Jameson MD Patient is here to go over shortness of breath evaluation/management. Initial development of shortness of breath: 2023 Duration of shortness of breath: 1 year Condition of shortness of breath: worsening Timing of shortness of breath: early in the morning Frequency: up to 2 times a day Limits activities: yes Aggravating factors: walking, using arms cleaning Alleviating factors: rest Modified [employer] (mMRC) Dyspnea Scale - Grade 1 Grade 0 I only get breathless with strenuous exercise . Grade 1 I get short of breath when hurrying on the level or walking up a slight hill . Grade 2 I walk slower than people of the same age on the level because of breathlessness or have to stop for breath when walking at my own pace on the level . Grade 3 I stop for breath after walking about 100 yards or after a few minutes on the level . Grade 4 I am too breathless to leave the house or I am breathless when dressing . Treatment history: budesonide-formoterol HFA 160/4.5 mcg 2 puffs BID filled 03/2024, quit after 3 times due to heart racing side effects Other symptoms: Drooling: no Dysarthria: no Neck pain: no Odynophagia: no Dysphagia: no Weak mastication: no Facial weakness: no Nasal speech: no Protruding tongue: no Productive cough: clear Wheezing: no Chest tightness: yes Orthopnea: 3-pillow Frequent throat clearing or swallowing: yes Palpitations: no Heartburn: no Edema: no Environmental exposures: Nicotine smoke: 1 ppd 1984-present (quit 6 years in between) = 35 pack years [place]: no Dye: no Dust mites: yes Mold: no Damp basement: no Wood burning stove: no Animal dander: dog Cockroaches: no Pollen: yes Arsenic: no Asbestos: no Beryllium: no Cadmium: no Chromium: no [place] smoke: no Diesel fumes: no Nickel: no Silica: no Soot: no EPWORTH SLEEPINESS SCALE (ESS) CHANCE OF DOZING SCORE 0 = would never doze 1 = slight chance of dozing 2 = moderate chance of dozing 3 = high chance of dozing SITUATION AND CHANCE OF DOZING Sitting and reading - 0 Watching television - 0 Sitting inactive in a public place (e.g. a theater or meeting) - 0 As a passenger in a car for an hour without a break - 0 Lying down to rest in the afternoon when circumstances permit - 0 Sitting and talking to someone - 0 Sitting quietly after lunch without alcohol - 0 In a car, while stopped for a few minutes in the traffic - 0 TOTAL SCORE 0 Subjectively, patient has no chance of dozing. Elian Gamez MD [address] [facility], [place], [address], [employer] 05/16/2024 15:04:17 5 text/html OV 12/11/2024:Here to establish care Present Hx:HTNDOESmokerChronic painHx of prediabetesAllergies Here to discuss above and also to get labsShcastro does see her director online marketing in [place] Ledy Edwards MD [address], [place], [address], [employer] 12/11/2024 18:30:00 OBGyn Episode No OBEpisode recorded.
--- OUTSIDE RECORDS SUMMARY | 2025-01-01 09:02 | XMS_ITS | Encounter Summary ---
Author Organization 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 Gender Identity Female 01/06/2021 2:13 PM CDT [...] st Contact Info) Description 03/01/2025 1:00 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
--- OUTSIDE RECORDS SUMMARY | 2025-01-01 09:02 | XMS_ITS | Data Portability ---
Author Organization [facility] Address [address] [place] [address] Assessment No assessment recorded. Plan of Treatment Reminders Order Date Submit Date Provider Last Modified By Organization Details Last Modified Time Details Appointments None recorded. Lab CMP, serum or plasma 2023 024 [facility], [address] [place] [address], [place] [address], [place], [address], 4 13:11:51 lipid panel, serum 2023 024 [facility], [address] [facility], [facility] [address], [place], [address], 4 13:11:50 CBC 2023 024 [facility], [address] [place] [address], [facility] [address], [place], [address], 4 13:11:[address] referral 2024 025 clarice Gamez MD, [address] [place], [address], 5 14:29:40 Procedures None recorded. Surgeries None recorded. Imaging XR, thoracic spine - Attention to posterior upper area 2023 024 [facility] ([facility]), [address] [place], [address], 4 11:27:08 XR, chest, 2 view [address] ([facility]), [address], [place], [address], 5 11:21:39 Medication Orders zolpidem 5 mg tablet [address] [id number], [address], [place], [address], 5 10:58:04 gabapentin 100 mg capsule [address] [id number], [address], [place], [address], 5 10:58:03 zolpidem ER 6.25 mg tablet,exte nded release,[facility] 2024 025 [id number], [address], [place], [address], 5 10:54:08 gabapentin 100 mg capsule [address] [id number], [address], [place], [address], 5 12:45:50 Symbicort 160 mcg-4.5 mcg/actuati on HFA aerosol inhaler [address] [id number], [address], [place], [address], 5 15:54:44 citalopram 10 mg tablet [address] [id number], [address], [place], [address], 5 12:28:35 naproxen 500 mg tablet 2023 024 [id number], [address], [place], [address], 10:48:29 zolpidem ER 6.25 mg tablet,exte nded release,mul tiphase 2023 024 [email or web address] [facility] #[id number], [address], [place], [address], 10:54:08 zolpidem ER 6.25 mg tablet,exte nded release,mul tiphase 2023 024 [email or web address] [facility] #[id number], [address], [place], [address], 10:54:08 Patient TargetsNo targets recorded. Patient Instructions Encounter Date Encounter Id Patient Instructions Last Modified By Organization Details Last Modified Time 10/21/2023 [id number] allergies: care instructions [email or web address] Not available 10/21/2023 15:32:02 bronchitis: care instructions [email or web address] Not available 10/21/2023 15:32:02 headache: care instructions Not available 10/21/2023 15:32:02 A healthy lifestyle: care instructions [email or web address] Not available 10/21/2023 15:32:02 learning about high blood pressure [email or web address] Not available 10/21/2023 15:32:02 02/07/2024 [id number] bronchitis: care instructions [email or web address] Not available 02/07/2024 16:16:00 learning about high blood pressure Not available 02/07/2024 16:25:50 04/10/2024 [id number] allergies: care instructions Not available 04/10/2024 15:54:39 bronchitis: care instructions [email or web address] Not available 04/10/2024 15:54:39 coughing up blood: care instructions Not available 04/10/2024 15:54:39 insomnia: care instructions [email or web address] Not available 04/10/2024 15:54:39 learning about high blood sugar Not available 04/10/2024 15:54:39 learning about high blood pressure [email or web address] Not available 04/10/2024 15:54:39 05/30/2024 [id number] neuropathic pain : care instructions [email or web address] Not available 05/30/2024 12:45:48 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 . Smoker over thirty years ago Referring Physician: Lora Cadet, Internal Medicine, Encounter Date: 04/10/2024 Results Created Date Observation Date Name Description Value Unit Range Abnormal Flag Note LastModifiedBy Organization Detail LastModifiedTime 09/27/19 24 10/02/2023 COMPL IANCE DRUG JAIDEN SIS, UR summary report (summary) FINAL ===== ===== ===== ===== ===== ===== ===== ===== ===== ===== ===== ===== ===== === TOXAS SURE COMP DRUG JAIDEN SIS,U R ===== ===== ===== ===== ===== ===== ===== ===== ===== ===== ===== ===== ===== === Speci men Alert Note: Urina ry creat inine is very low; abili ty to detec t some drugs may be compr omise d; creat inine -norm deanne d drug nely ntrat ions shoul d be inter prete d with cauti on. Sugge st recol lecti on. ===== ===== ===== ===== ===== ===== ===== ===== ===== ===== ===== ===== ===== === Test Resul t Flag Units Drug Prese nt Aceta minop hen PRESE NT ===== ===== ===== ===== ===== ===== ===== ===== ===== ===== ===== ===== ===== === Test Resul t Flag Units Ref Range Creat inine 9 L mg/dL >=20 ===== ===== ===== ===== ===== ===== ===== ===== ===== ===== ===== ===== ===== === Decla red Medic ation s: Medic ation list was not provi ded. ===== ===== ===== ===== ===== ===== ===== ===== ===== ===== ===== ===== ===== === For clini gus consu ltati on, pleas e call . ===== ===== ===== ===== ===== ===== ===== ===== ===== ===== ===== ===== ===== === Not Available [facility] ([facility]) [address] [place], [address], 10/02/2023 10:12:31 09/27/19 24 10/02/2023 COMPL IANCE DRUG JAIDEN SIS, UR pdf . Not Available [facility] ([facility]) [address] [place], [address], 10/02/2023 10:12:31 02/07/20 24 02/08/2024 LIPID PANEL cholesterol, total 214 mg/dL 100-19 9 above high normal Not Available [facility] ([facility]) [address] [place], [address], 02/08/2024 13:11:50 02/07/20 24 02/08/2024 LIPID PANEL triglyceride s 121 mg/dL 0-149 Not Available [facility] ([facility]) [address] [place], [address], 02/08/2024 13:11:50 02/07/20 24 02/08/2024 LIPID PANEL HDL cholesterol 72 mg/dL >39 Not Available [facility]) [address] [place], [address], 02/08/2024 13:11:50 02/07/20 24 02/08/2024 LIPID PANEL VLDL cholesterol gus 21 mg/dL 5-40 Not Available [facility] ([facility]) [address] [place], [address], 02/08/2024 13:11:50 02/07/20 24 02/08/2024 LIPID PANEL LDL chol calc ([facility]) 121 mg/dL 0-99 above high normal Not Available [facility] ([facility]) [address] [place], [address], 02/08/2024 13:11:50 02/07/20 24 02/08/2024 COMP. METAB OLIC PANEL (14) glucose - mg/dL Test not perfo rmed. Serum was in conta ct with cells when recei lindsey which will make the resul t inacc urate . Not Available [facility] ([facility]) [address] [facility], [place], [address], 02/08/2024 13:11:51 02/07/20 24 02/08/2024 COMP. METAB OLIC PANEL (14) BUN 13 mg/dL 8-27 Not Available [facility] ([facility]) [address] [place], [address], 02/08/2024 13:11:51 02/07/20 24 02/08/2024 COMP. METAB OLIC PANEL (14) creatinine 0.78 mg/dL 0.57-1 .00 Not Available [facility] ([facility]) [address] [place], [address], 02/08/2024 13:11:51 02/07/20 24 02/08/2024 COMP. METAB OLIC PANEL (14) eGFR 82 mL/mi n/1.7 3 >59 Not Available [facility] ([facility]) [address] [place], [address], 02/08/2024 13:11:51 02/07/20 24 02/08/2024 COMP. METAB OLIC PANEL (14) BUN/creatini ne ratio 17 -28 Not Available [facility] ([facility]) [address] [facility], [place], [address], 02/08/2024 13:11:51 02/07/20 24 02/08/2024 COMP. METAB OLIC PANEL (14) sodium 138 mmol/ L 134-14 4 Not Available [facility] ([facility]) [address] [place], [address], 02/08/2024 13:11:51 02/07/20 24 02/08/2024 COMP. METAB OLIC PANEL (14) potassium - mmol/ L Test not perfo rmed. Serum was in conta ct with cells when recei lindsey which will make the resul t inacc urate . Not Available [facility] ([facility]) [address] [place], [address], 02/08/2024 13:11:51 02/07/20 24 02/08/2024 COMP. METAB OLIC PANEL (14) chloride 103 mmol/ L 96-106 Not Available [facility] ([facility]) [address] [place], [address], 02/08/2024 13:11:51 02/07/20 24 02/08/2024 COMP. METAB OLIC PANEL (14) carbon dioxide, total - mmol/ L Test not perfo rmed. Due to a lack of repro ducib ility with this patie nt sampl e, a valid resul t could not be obtai angel luis. Not Available [facility] ([facility]) [address] [place], [address], 02/08/2024 13:11:51 02/07/20 24 02/08/2024 COMP. METAB OLIC PANEL (14) calcium 9.6 mg/dL 8.7-10 .3 Not Available [facility] ([facility]) [address] [place], [address], 02/08/2024 13:11:51 02/07/20 24 02/08/2024 COMP. METAB OLIC PANEL (14) protein, total 7.7 g/dL 6.0-8. 5 Not Available [facility] ([facility]) [address] [place], [address], 02/08/2024 13:11:51 02/07/20 24 02/08/2024 COMP. METAB OLIC PANEL (14) albumin 4.7 g/dL 3.9-4. 9 Not Available [facility] ([facility]) [address] [place], [address], 02/08/2024 13:11:51 02/07/20 24 02/08/2024 COMP. METAB OLIC PANEL (14) globulin, total 3.0 g/dL 1.5-4. 5 Not Available [facility] ([facility]) [address] [place], [address], 02/08/2024 13:11:51 02/07/20 24 02/08/2024 COMP. METAB OLIC PANEL (14) bilirubin, total <0.2 mg/dL 0.0-1. 2 Not Available [facility] [address] [place], [address], 02/08/2024 13:11:51 02/07/20 24 02/08/2024 COMP. METAB OLIC PANEL (14) alkaline phosphatase 133 IU/L 44-121 above high normal Not Available [facility] ([facility]) [address] [place], [address], 02/08/2024 13:11:51 02/07/20 24 02/08/2024 COMP. METAB OLIC PANEL (14) AST (SGOT) 24 IU/L 0-40 Not Available [facility] ([facility]) [address] [place], [address], 02/08/2024 13:11:51 02/07/20 24 02/08/2024 COMP. METAB OLIC PANEL (14) ALT (SGPT) 13 IU/L 0-32 Not Available [facility] ([facility]) [address] [place], [address], 02/08/2024 13:11:51 02/07/20 24 02/08/2024 CBC, PLATE LET, NO DIFFE RENTI AL WBC 7.3 x10e3 /uL 3.4-10 .8 Not Available [facility] ([facility]) [address] [place], [address], 02/08/2024 13:11:52 02/07/20 24 02/08/2024 CBC, PLATE LET, NO DIFFE RENTI AL RBC 4.35 x10e6 /uL 3.77-5 .28 Not Available [facility] ([facility]) [address] [place], [address], 02/08/2024 13:11:52 02/07/20 24 02/08/2024 CBC, PLATE LET, NO DIFFE RENTI AL hemoglobin 13.1 g/dL 11.1-1 5.9 Not Available [facility] ([facility]) [address] [place], [address], 02/08/2024 13:11:52 02/07/20 24 02/08/2024 CBC, PLATE LET, NO DIFFE RENTI AL hematocrit 39.4 % 34.0-4 6.6 Not Available [facility] ([facility]) [address] [facility], [place], [address], 02/08/2024 13:11:52 02/07/20 24 02/08/2024 CBC, PLATE LET, NO DIFFE RENTI AL MCV 91 fL 79-97 Not Available [facility] ([facility]) [address] [facility], [place], [address], 02/08/2024 13:11:52 02/07/20 24 02/08/2024 CBC, PLATE LET, NO DIFFE RENTI AL MCH 30.1 pg 26.6-3 3.0 Not Available [facility] ([facility]) [address] [facility], [place], [address], 02/08/2024 13:11:52 02/07/20 24 02/08/2024 CBC, PLATE LET, NO DIFFE RENTI AL MCHC 33.2 g/dL 31.5-3 5.7 Not Available [facility] ([facility]) [address] [facility], [place], [address], 02/08/2024 13:11:52 02/07/20 24 02/08/2024 CBC, PLATE LET, NO DIFFE RENTI AL RDW 12.8 % 11.7-1 5.4 Not Available [facility] ([facility]) [address] [facility], [place], [address], 02/08/2024 13:11:52 02/07/20 24 02/08/2024 CBC, PLATE LET, NO DIFFE RENTI AL platelets 312 x10e3 /uL 150-45 0 Not Available [facility] ([facility]) [address] [facility], [place], [address], 02/08/2024 13:11:52 02/08/20 24 02/08/2024 XR, thora cic spine No observ ation record ed. [facility] [address] [place], [address], 02/09/2024 11:56:24 Result Notes None recorded. Problems Name Problem SNOMED Code Status Onset Date Resolution Date Notes Provider Name and Address Organization Details Recorded Time Neck pain 10341528 Active Not Available [facility] 3 12:08:57 Pain of shoulder region 76738076 Active Not Available [facility] 3 12:08:56 Anxiety disorder 542942836 Active Not Available [facility] 3 12:08:56 Depressi ve disorder 89747068 Active Not Available [facility] 3 12:08:56 Pain of hip region 37229016 Active Not Available [facility] 3 12:08:56 Osteopor osis 47506057 Completed 09/26/2018 Lora Cadet MD Attn: Accounting ,[address] [place], [address] , [facility] 9 11:13:41 Cramp in limb 266612037 Active Not Available [facility] 3 12:08:56 Soreness 98260253 Active Not Available [facility] 3 12:08:56 Vitamin D deficien cy 85210588 Active Not Available [facility] 3 12:08:56 Osteopen ia 549209001 Active Not Available [facility] 3 12:08:56 Pain in face 07294228 Active Not Available [facility] 3 12:08:57 Chronic constipa tion 663606623 Active Not Available [facility] 3 12:08:56 Paresthe kourtney of hand 008983792 Active Not Available [facility] 3 12:08:56 Paresthe kourtney of foot 628116130 Active Not Available [facility] 3 12:08:56 Dizzines s of unknown cause 950531410 Active Not Available [facility] 3 12:08:56 Chest pain 94671813 Active Not Available [facility] 3 12:08:56 Degenera tive polyarth ritis 092398869 Active 2016 Not Available [facility] 3 12:08:56 Allergic rhinitis 03563186 Active 2016 Not Available [facility] 3 12:08:56 Tenderne ss of chest wall 881358635 Active 2017 Left Not Available [facility] 3 12:08:56 Bronchop neumonia 644444336 Active 2017 Not Available [facility] 3 12:08:56 Ex-smoke r 5999813 Active 2017 Stopped 2013 Not Available [facility] 3 12:08:57 Insomnia 646591395 Active 2018 Not Available [facility] 3 12:08:56 Neuropat hy 646400247 Active 2018 Not Available [facility] 3 12:08:56 History of osteopen ia 127043149 Active 2018 Not Available [facility] 3 12:08:56 Elevated blood-pr essure reading without diagnosi s of hyperten anna 015095981 Completed 201804/03/2020 Lora Cadet MD Attn: [place], [address] , [facility] 1 13:02:03 Pruritic disorder 005308911 Active 2018 Not Available [facility] 3 12:08:56 Essentia l hyperten anna 68454154 Active 2018 Not Available [facility] 3 12:08:56 Pharyngi tis 906607055 Active 2018 Not Available [facility] 3 12:08:56 Diarrhea 05461497 Active 2018 Not Available [facility] 3 12:08:56 History of melena 810606447 Active 2018 Not Available [facility] 3 12:08:56 Abdomina l pain 63121020 Active 2018 Not Available [facility] 3 12:08:56 Abdomina l bloating 421628515 Active 2018 Not Available [facility] 3 12:08:56 Vasovaga l syncope 786623351 Active 2019 Not Available [facility] 3 12:08:56 Pain of right shoulder joint 50603994401 563302 Active 2019 Not Available [facility] 3 12:08:56 Cardiac pacemake r in situ 861649506 Active 2019 Not Available [facility] 3 12:08:56 Chronic atrial fibrilla tion 166298215 Active 2019 Not Available [facility] 3 12:08:56 Fatigue 21310302 Active 2020 Not Available [facility] 3 12:08:57 Dysphagi a 64456824 Active 2020 Not Available [facility] 3 12:08:56 Altered bowel function 76984470 Active 2020 diarrhea and constipa tion Not Available [facility] 3 12:08:57 Nausea 449262437 Active 2021 Not Available [facility] 3 12:08:56 Syncope 476185145 Active 2021 Not Available [facility] 3 12:08:56 Headache 82311390 Active 2021 Not Available [facility] 3 12:08:56 Edema of lower leg 055278432 Active 2022 Not Available [facility] 3 12:08:56 Hypergly cemia 58868490 Active 2022 Not Available [facility] 3 12:08:56 Bronchit is 60128057 Active 2022 Not Available [facility] 3 12:08:56 Lower gastroin testinal hemorrha ge 14543318 Active 2022 Not Available [facility] 3 12:08:57 Hyperlip idemia 85144184 Active 2022 Not Available [facility] 3 12:08:56 Standard chest X-ray abnormal 025518858 Active 2022 Not Available [facility] 3 12:08:56 Lung mass 517461675 Active 2022 Right middle lobe Not Available [facility] 3 12:08:56 Injury of right hand 56244971894 972910 Active 2022 Not Available [facility] 3 12:08:56 Gastroes ophageal reflux disease 946610293 Active 2022 Not Available [facility] 3 12:08:56 Feeling stressed 152041046 Active 2022 Not Available [facility] 3 12:08:56 Medicati on monitori ng Active 2023 Lora Cadet MD Attn: Accounting ,[address] [place], [address] , [facility] 4 04:43:43 Pain 59881864 Active 2023 Right upper back Lora Cadet MD Attn: Accounting ,[address] [place], [address] , [facility] 4 16:15:52 Insect bite - wound 973788171 Active 2023 Lora Cadet MD Attn: Accounting ,[address] [place], [address] , [facility] 4 11:46:52 Hemoptys is 85275722 Active 2024 Lora Cadet MD Attn: Accounting ,[address] [place], [address] , [facility] 5 15:44:50 Notes:Some problems listed i n Documents: #[id number], #[id number], #[id number] could not be added to this patient's chart. Please review these documents and add these problems to the patient's chart manually as needed. Problem Notes None recorded. Procedures Surgical History Date Name Laterality Status Provider Name and Address Organization Details Recorded Time Arthroscopic Surgery completed Moustapha Lundberg MA [facility] 05/01/2015 10:27:45 Gastric Bypass completed KAILA Medina [facility] 05/01/2015 10:27:45 Back Surgery completed Moustapha Lundberg [place] [facility] 05/01/2015 10:27:45 Knee Surgery completed Moustapha Lundberg [place] [facility] 05/01/2015 10:27:45 Tonsillectomy completed Moustapha Lundberg MA [facility] 05/01/2015 10:27:45 Imaging Results None recorded. Procedure Notes None recorded. Medical Equipment None Reported. Allergies Allergen ID Allergen Name Allergen Category Reaction Reaction Severity Criticality Documentation Date Start Date Code Code System Note Provider Name and Address Organization Details Recorded Time 457938 Cymbalta medicatio n abdominal pain nausea severe moderate Not available 01/09/2021 07915 4 RxNorm Lora Cadet MD Attn: Maile michelle,[address] [place], [address], [facility] 1 10:48:17 485142 citalopra m medicatio n nausea mild Not available 04/11/20242024 2556 RxNorm Moustapha Mohan RN [facility], [place] [facility] 5 10:54:38 Medications Name Sig Start Date Stop Date Status Note LastModified by Organization Details LastModified Time fiber laxative tablets 09/26 completed Not Available Not Available Not Available calcium carbonate antacid regu 09/26 completed Not Available Not Available Not Available meclizine hcl 25 mg tabs 09/26 completed Not Available Not Available Not Available vitamin c 500mg 09/26 completed Not Available Not Available Not Available baclofen 10 mg tabs 09/26 completed Not Available Not Available Not Available effervesc ent denture tabs - 90 09/26 completed Not Available Not Available Not Available psyllium fiber laxative capsul 09/26 completed Not Available Not Available Not Available muscle rub 09/26 completed Not Available Not Available Not Available cyclobenz aprine hcl 10 mg tabs 04/22 completed Not Available Not Available Not Available roll-on muscle relief 09/26 completed Not Available Not Available Not Available cyclobenz aprine hcl 5 mg tabs 09/26 completed Not Available Not Available Not Available anti hemorrhoi soco ointment 09/26 completed Not Available Not Available Not Available daytime pe softgels 09/26 completed Not Available Not Available Not Available tolnaftat e 0.01 antifunga l 09/26 completed Not Available Not Available Not Available oral pain relief benzocain e 20 09/26 completed Not Available Not Available Not Available naproxen sodium - 100 count 09/26 completed Not Available Not Available Not Available gabapenti n 100 mg caps 09/26 completed Not Available Not Available Not Available reusable cold compress 09/26 completed Not Available Not Available Not Available expectora nt guaifenes in 400m 09/26 completed Not Available Not Available Not Available Prescript ion - Prior Authoriza tion Request 04/03 completed Not Available Not Available Not Available vitamin d 5000 iu 09/26 completed Not Available Not Available Not Available vitamin b-12 5000mg sublingua l 09/26 completed Not Available Not Available Not Available hydrocodo ne/acetam inophen 10-325 mg tabs 09/26 completed Not Available Not Available Not Available 7 day pill box 09/26 completed Not Available Not Available Not Available ibuprofen 600 mg tabs 09/26 completed Not Available Not Available Not Available alprazola m 1 mg tabs 09/26 completed Not Available Not Available Not Available sertralin e hcl 50 mg tabs 09/26 completed Not Available Not Available Not Available complete senior vitamins and m 09/26 completed Not Available Not Available Not Available tramadol hcl 50 mg tabs 09/26 completed Not Available Not Available Not Available linzess 145 mcg caps 08/03 completed Not Available Not Available Not Available elastic bandage 09/26 completed Not Available Not Available Not Available triple antibioti c ointment plu 09/26 completed Not Available Not Available Not Available losartan 50 mg tablet TAKE 1 TABLET BY MOUTH EVERY DAY 11/18 completed Not Available Not Available Not Available carisopro dol 350 mg tablet TAKE 1 TABLET BY MOUTH TWICE A DAY active Not Available Not Available No t Available cyclobenz aprine 10 mg tablet Take 1 tablet every 12 hours by oral route as needed. 09/26 completed Not Available Not Available Not Available buspirone 5 mg tablet TAKE 1 TABLET BY MOUTH DAILY X7 DAYS, THEN 1 TABLET BY MOUTH TWICE DAILY 04/14 completed Not Available Not Available Not Available doxycycli ne hyclate 100 mg capsule 09/26 completed Not Available Not Available Not Available paroxetin e 10 mg tablet 09/26 completed Not Available Not Available Not Available trazodone 50 mg tablet TAKE 1 TABLET BY MOUTH EVERY DAY AT BEDTIME 05/01 completed Not Available Not Available Not Available cetirizin e 10 mg tablet Take 1 tablet every day by oral route. 09/26 completed Not Available Not Available Not Available atorvasta tin 10 mg tablet 09/26 completed Not Available Not Available Not Available azithromy chela 250 mg tablet TAKE 2 TABLETS NOW AND 1 TABLET ON DAYS 2-5 04/10 completed Not Available Not Available Not Available alprazola m 1 mg tablet 12/24 completed Not Available Not Available Not Available Lidocaine Viscous 2 % mucosal solution 04/03 completed Not Available Not Available Not Available tizanidin e 4 mg tablet Take 1 tablet every 12 hours by oral route as needed. 09/26 completed Not Available Not Available Not Available benzonata te 200 mg capsule TAKE ONE CAPSULE EVERY EIGHT HOURS NEEDED FOR COUGH active Not Available Not Available No t Available citalopra m 10 mg tablet Take 1 tablet every day by oral route. 04/11 completed Not Available Not Available Not Available meloxicam 15 mg tablet TAKE 1 TABLET BY MOUTH EVERY DAY 06/22 completed Not Available Not Available Not Available ondansetr on HCl 4 mg tablet TAKE 1 TABLET BY MOUTH 3 TIMES A DAY NEEDED 07/13 completed Not Available Not Available Not Available clonazepa m 0.5 mg tablet TAKE 1 TABLET BY MOUTH TWICE DAILY 10/22 completed Not Available Not Available Not Available clonazepa m 1 mg tablet TAKE 1 TABLET BY MOUTH AT BEDTIME 11/18 completed Not Available Not Available Not Available lithium carbonate ER 300 mg tablet,ex tended release 10/22 completed Not Available Not Available Not Available triamcino lone acetonide 0.5 % topical ointment APPLY TO AFFECTED AREA TWICE A DAY FOR 7 DAYS active Not Available Not Available No t Available amlodipin e 2.5 mg tablet 09/26 completed Not Available Not Available Not Available hydroxyzi ne HCl 50 mg tablet 12/24 completed Not Available Not Available Not Available dextromet horphan-g uaifenesi n 10 mg-100 mg/5 mL oral syrup Take 5 mL every 6 hours by oral route. 09/26 completed Not Available Not Available Not Available sulfameth oxazole 800 mg-trimet hoprim 160 mg tablet TAKE 1 TABLET BY MOUTH TWICE A DAY FOR 10 DAYS 04/10 completed Not Available Not Available Not Available hydrocodo ne 10 mg-acetam inophen 325 mg tablet TAKE 1 TABLET BY MOUTH FOUR TIMES DAILY FOR CHRONIC PAIN active Not Available Not Available No t Available omeprazol e 40 mg capsule,d elayed release TAKE 1 CAPSULE BY MOUTH EVERY DAY WITH FOOD 06/22 completed Not Available Not Available Not Available triamcino lone acetonide 0.1 % topical cream APPLY A THIN LAYER TO THE AFFECTED AREA(S) BY TOPICAL ROUTE 2 TIMES PER DAY active Not Available Not Available No t Available butalbita l-acetami nophen-ca ffeine 50 mg-325 mg-40 mg tablet TAKE 1 TABLET BY MOUTH THREE TIMES A DAY NEEDED 06/22 completed Not Available Not Available Not Available alprazola m 0.25 mg tablet TAKE 1 TABLET BY MOUTH THREE TIMES DAILY NEEDED 10/27 completed Not Available Not Available Not Available citalopra m 20 mg tablet 20 MG ORALLY DAILY 06/22 completed Not Available Not Available Not Available famotidin e 20 mg tablet 12/24 completed Not Available Not Available Not Available prednisol one acetate 1 % eye drops,[facility] 09/26 completed Not Available Not Available Not Available oxycodone -acetamin ophen 10 mg-325 mg tablet TAKE 1 TABLET BY MOUTH FOUR TIMES DAILY FOR CHRONIC PAIN active Not Available Not Available No t Available ropinirol e 0.25 mg tablet take two tablets by mouth at bedtime 11/18 completed Not Available Not Available Not Available hydrocodo ne 7.5 mg-acetam inophen 325 mg tablet Take 1 tablet 3 times a day by oral route as needed. 01/09 completed Being seen by pain manageme nt Not Available Not Available Not Available cephalexi n 500 mg capsule TAKE 1 CAPSULE BY MOUTH TWICE A DAY 06/22 completed Not Available Not Available Not Available paroxetin e 20 mg tablet 07/13 completed Not Available Not Available Not Available triamcino lone acetonide 0.1 % topical ointment 06/22 completed Not Available Not Available Not Available prednison e 50 mg tablet 09/26 completed Not Available Not Available Not Available flecainid e 50 mg tablet TAKE 1 TABLET BY MOUTH TWICE A DAY 11/18 completed Not Available Not Available Not Available losartan 25 mg tablet 12/24 completed Not Available Not Available Not Available gabapenti n 300 mg capsule active Not Available Not Available Not Available omeprazol e 20 mg capsule,d elayed release TAKE 1 CAPSULE BY MOUTH EVERY DAY BEFORE A MEAL 12/24 completed Not Available Not Available Not Available hydroxyzi ne HCl 25 mg tablet TAKE 1 TABLET TWICE A DAY BY ORAL ROUTE NEEDED. 10/27 completed Not Available Not Available Not Available hydrochlo rothiazid e 25 mg tablet TAKE 1 TABLET BY MOUTH DAILY active Not Available Not Available No t Available zolpidem 5 mg tablet TAKE 1 TABLET BY MOUTH EVERYDAY AT BEDTIME active Not Available Not Available No t Available gabapenti n 100 mg capsule TAKE 1 CAPSULE BY MOUTH TWICE A DAY active Not Available Not Available No t Available metoprolo l succinate ER 25 mg tablet,ex tended release 24 hr TAKE 1/2 TABLET BY MOUTH DAILY 06/22 completed Not Available Not Available Not Available ergocalci ferol (vitamin D2) 1,250 mcg (50,000 unit) capsule TAKE 1 CAPSULE BY MOUTH ONE TIME PER WEEK 07/13 completed Not Available Not Available Not Available clobetaso l 0.05 % topical ointment APPLY TO AFFECTED AREA TWICE A DAY FOR 4 WEEKS 10/20 completed Not Available Not Available Not Available polyethyl jose enrique glycol 3350 17 gram/dose oral powder MIX 2 CAPFULS (34G) IN LIQUID AND DRINK IN THE MORNING 10/22 completed Not Available Not Available Not Available levofloxa chela 500 mg tablet 09/26 completed Not Available Not Available Not Available levofloxa chela 750 mg tablet TAKE ONE TABLET DAILY FOR SEVEN DAYS 08/31 completed Not Available Not Available Not Available zolpidem 10 mg tablet TAKE 1 TABLET BY MOUTH EVERY DAY 10/20 completed Not Available Not Available Not Available methylpre dnisolone 4 mg tablets in a dose pack TAKE 6 TABLETS ON DAY 1 DIRECTED ON PACKAGE AND DECREASE BY 1 TAB EACH DAY FOR A TOTAL OF 6 DAYS 08/31 completed Not Available Not Available Not Available albuterol sulfate HFA 90 mcg/actua tion aerosol inhaler INHALE TWO PUFFS BY MOUTH EVERY 4 TO 6 HOURS NEEDED FOR SHORTNES S OF BREATH 08/31 completed Not Available Not Available Not Available hydroxyzi ne HCl 10 mg tablet TAKE 1 TABLET BY MOUTH TWICE A DAY NEEDED 06/22 completed Not Available Not Available Not Available fluticaso ne propionat e 50 mcg/actua tion nasal spray,jovanny pension Two puffs in each nostril daily 09/26 completed Not Available Not Available Not Available sertralin e 50 mg tablet TAKE 1 TABLET BY MOUTH EVERY DAY 08/31 completed Upset her stomach Not Available Not Available Not Available naproxen 500 mg tablet TAKE 1 TABLET BY MOUTH TWICE A DAY 08/31 completed Not Available Not Available Not Available metoclopr amide 10 mg tablet 12/24 completed Not Available Not Available Not Available amoxicill in 875 mg-potass ium clavulana te 125 mg tablet TAKE 1 TABLET ORAL ROUTE EVERY 12 HOURS FOR 10 DAYS 06/22 completed Not Available Not Available Not Available metoprolo l tartrate 25 mg tablet TAKE 1 TABLET BY MOUTH TWICE A DAY 06/22 completed Not Available Not Available Not Available duloxetin e 30 mg capsule,d elayed release TAKE 1 CAPSULE BY MOUTH EVERY DAY active Not Available Not Available No t Available lactulose 10 gram/15 mL oral solution 12/24 completed Not Available Not Available Not Available Flovent HFA 44 mcg/actua tion aerosol inhaler INHALE 2 PUFFS BY MOUTH TWICE A DAY 06/22 completed Not Available Not Available Not Available ramelteon 8 mg tablet TAKE 1 TABLET EVERY DAY BY ORAL ROUTE NEEDED. 07/14 completed Switched to Zolpidem Not Available Not Available Not Available zolpidem ER 6.25 mg tablet,ex tended release,m ultiphase TAKE 1 TABLET BY MOUTH EVERYDAY AT BEDTIME 08/31 completed Not Available Not Available Not Available Amitiza 24 mcg capsule 09/26 completed Not Available Not Available Not Available budesonid e-formote rol HFA 160 mcg-4.5 mcg/actua tion aerosol inhaler INHALE 2 PUFFS BY MOUTH TWICE A DAY active Not Available Not Available No t Available levocetir izine 5 mg tablet Take 1 tablet every day by oral route. 09/26 completed Not Available Not Available Not Available Synvisc-O ne 48 mg/6 mL intra-art icular syringe active Not Available Not Available Not Available Besivance 0.6 % eye drops,jovanny pension 09/26 completed Not Available Not Available Not Available GaviLyte- G 236 gram-22.7 4 gram-6.74 gram-5.86 gram oral solution USE DIRECTED 10/22 completed Not Available Not Available Not Available Prevnar 13 (PF) 0.5 mL intramusc ular syringe 04/03 completed Not Available Not Available Not Available Linzess 145 mcg capsule TAKE 1 CAPSULE BY MOUTH EVERY DAY NEEDED 12/24 completed Not Available Not Available Not Available Linzess 290 mcg capsule TAKE 1 CAPSULE BY MOUTH DAILY BEFORE MEALS FOR 30 DAYS 07/13 completed Not Available Not Available Not Available Lotemax 0.5 % eye gel drops 09/26 completed Not Available Not Available Not Available Eliquis 5 mg tablet TAKE 1 TABLET BY MOUTH TWICE A DAY 06/22 completed Not Available Not Available Not Available Anoro Ellipta 62.5 mcg-25 mcg/actua tion powder for inhalatio n 04/03 completed Not Available Not Available Not Available Belsomra 5 mg tablet TAKE 1 TABLET BY MOUTH EVERYDAY AT BEDTIME 01/18 completed Not Available Not Available Not Available Linzess 72 mcg capsule TAKE ONE CAPSULE BY MOUTH ONCE DAILY 08/03 completed Not Available Not Available Not Available Qvar RediHaler 40 mcg/actua tion HFA breath activated aerosol Inhale 2 puffs twice a day by inhalati on route. 07/14 completed Not Available Not Available Not Available Fluarix Quad [id number] (PF) 60 mcg (15 mcg x 4)/0.5 mL IM syringe 09/26 completed Not Available Not Available Not Available Fluzone High-Dose 2019-20 (PF) 180 mcg/0.5 mL intramusc ular syringe 12/24 completed Not Available Not Available Not Available Fluad Quad (65yr up)(PF) 60 mcg (15 mcg x 4)/0.5mL IM syringe 12/24 completed Not Available Not Available Not Available Vitals Date Recorded Body height Body mass index (BMI) Body weight Heart rate Oxygen saturation Oxygen saturation in Arterial blood by Pulse oximetry Systolic And Diastolic Provider Name and Address Organization Details Last Updated DateTime 5 162.56 cm 26.1 kg/m2 49759.1 8 g 70 /min 98 % 98 % 148/88 mm[Hg] Sandra Lopez MA [facility] 5 15:02:40 Date Recorded Body height Body mass index (BMI) Body weight Heart rate Oxygen saturation Oxygen saturation in Arterial blood by Pulse oximetry Systolic And Diastolic Provider Name and Address Organization Details Last Updated DateTime 5 162.56 cm 26.1 kg/m2 29225.4 7 g 75 /min 97 % 97 % 150/68 mm[Hg] Sandra Lopez MA [facility] 5 11:47:13 Date Recorded Body height Body mass index (BMI) Body weight Heart rate Oxygen saturation Oxygen saturation in Arterial blood by Pulse oximetry Systolic And Diastolic Provider Name and Address Organization Details Last Updated DateTime 5 162.56 cm 26.3 kg/m2 86487.6 3 g 70 /min 99 % 99 % 148/77 mm[Hg] Sandra Lopez MA [facility] 5 10:26:32 Date Recorded Body height Body mass index (BMI) Body weight Oxygen saturation Oxygen saturation in Arterial blood by Pulse oximetry Heart rate Systolic And Diastolic Provider Name and Address Organization Details Last Updated DateTime 4 162.56 cm 25.4 kg/m2 45701.6 7 g 98 % 98 % 70 /min 164/86 mm[Hg] Gabby Kang MA [facility] 4 14:42:08 Date Recorded Body height Body mass index (BMI) Body weight Heart rate Oxygen saturation Oxygen saturation in Arterial blood by Pulse oximetry Systolic And Diastolic Provider Name and Address Organization Details Last Updated DateTime 4 162.56 cm 25.9 kg/m2 85143.8 8 g 75 /min 97 % 97 % 149/89 mm[Hg] Sandra Lopez MA [facility] 4 15:42:00 Social History Question Answer Notes LastModified by Organizat [email or web address] Details LastModified Time Tobacco Smoking Status Current Every Day Smoker KAILA Bear [facility] 10/17/2018 16:19:51 What Was The Date Of Your Most Recent Tobacco Screening? 08/31/2024 Information not available 08/31/2024 Do You Have Smoke And Carbon Monoxide Detectors In Your Home? Yes Information not available 02/07/2024 How Much Tobacco Do You Smoke? 0.25 PPD Information not available 10/21/2023 Has Tobacco Cessation Counseling Been Provided? Yes Information not available 04/14/2022 On What Date Was Tobacco Cessation Counseling Provided? 08/31/2024 Information not available 08/31/2024 How Many Years Have You Smoked Tobacco? 15 Information not available 10/17/2018 Sex: Unknown Functional Status Question Answer Note LastModified by Organizat ion Details LastModified Time Do you or have you ever used any other forms of tobacco or nicotine? No Information not available 04/14/2022 Do you or have you ever used e-cigarettes or vape? Never used electronic cigarettes [email or web address] Information not available 12/25/2019 Mental Status None recorded. Family History Nothing Reported. Medical History Condition Response Anxiety Disorder Y Muscle, Joint, or Bone Problems Y Other Y Depression Y Osteoporosis Y Gynecological HistoryNo gynecological history recorded. Obstetrics History GPAL:G 0 P 0 0 0 0 Immunizations Vaccine Type Date Status Note Provider Nam e and Address Organization Details Recorded Time Influenza, split virus, quadrivalent, preservative 0 completed Not Available [facility] 09/18/2021 13:13:26 Influenza, split virus, quadrivalent, preservative 6 completed Not Available [facility] 04/15/2019 02:44:48 Influenza, split virus, quadrivalent, preservative 8 completed KAILA Escobar [facility] 05/30/2024 11:44:28 pneumococcal polysaccharide PPV23 7 completed KAILA [place] [facility] 05/30/2024 11:44:28 Pneumococcal conjugate PCV 13 9 [place] [facility] 05/30/2024 11:44:28 pneumococcal, unspecified formulation 8 completed [place] [facility] 05/30/2024 11:44:28 Influenza, high-dose, trivalent, PF 9 [place] [facility] 05/30/2024 11:44:28 Influenza, split virus, trivalent, preservative 3 [place]AIL[place] [facility] 05/30/2024 11:44:28 Influenza, split virus, trivalent, PF 7 [place]AIL[place] [facility] 05/30/2024 11:44:28 Influenza, split virus, quadrivalent, PF 8 [place] KAILA [place] [facility] 05/30/2024 11:44:28 Hep A-Hep B 4 completed Not Available [facility] 08/31/2024 10:09:27 Hep A-Hep B 4 completed Not Available [facility] 08/31/2024 10:09:27 Hep A-Hep B 4 completed Not Available [facility] 08/31/2024 10:09:27 Pneumococcal conjugate PCV 13 5 completed Not Available [facility] 08/31/2024 10:09:27 COVID-19, mRNA, LNP-S, PF, 30 mcg/0.3 mL dose 1 completed Not Available [facility] 08/31/2024 10:09:27 COVID-19, mRNA, LNP-S, PF, 30 mcg/0.3 mL dose 1 completed Not Available [facility] 08/31/2024 10:09:27 Influenza, high-dose, quadrivalent, PF 2 completed Not Available [facility] 08/31/2024 10:09:27 Pneumococcal conjugate PCV20, polysaccharide VVO069 conjugate, adjuvant, PF 3 completed Not Available [facility] 08/31/2024 10:09:27 Influenza, adjuvanted, quadrivalent, PF 3 completed Not Available [facility] 08/31/2024 10:09:27 Past Encounters Encounter ID Performer Location Encounter Start Date Encounter Closed Date Diagnosis/Indication Diagnosis SNOMED-CT Code Diagnosis ICD10 Code Diagnosis IMO Codes Diagnosis Note [id number] MD Allyson Avalos (Adult Med) [address] [place] [address] [id number] 0 05/01/2015 09:58:34 05/01/2015 11:14:29 Neck pain 44812513 M54.2 F/U with pain management Pain of oulder region 72347673 M25.519 Anxiety disorder 4217875 06 F41.9 Depressive disorder 3548 9007 F32.9 [id number] MD Allyson Avalos (Adult Med) [address] [place] [address] [id number] 0 07/04/2015 14:36:09 07/04/2015 16:40:16 Neck pain 74690064 M54.2 F/U with pain management Pain of oulder region 55064487 M25.519 Pain of hip region 19052 002 M25.552 Osteoporosis 22143778 M8 1.0 Had been on Actonel daily Adult [facility] th examination 264508707 Z00.01 Cramp in limb 552109876 R25.2 [id number] Lora Cadet MD [facility] (Adult Med) [address] [place] [address] [id number] 0 08/15/2015 15:04:17 08/16/2015 12:39:50 Cramp in limb 165942091 R25.2 Supplement al Ca 1000mg/d Soreness 63432389 R52 Vitamin D deficiency 347 16004 E55.9 Osteopenia 313484719 M85 .80 [id number] MD Allyson Avalos (Adult Med) [address] [place] [address] [id number] 0 10/01/2015 15:28:08 2015 13:40:38 Pain in face 26920950 R51 Chronic constipation 236 861593 K59.00 Paresthesia of hand 3090 48289 R20.2 Paresthesia of foot 3090 40636 R20.2 [id number] MD Allyson Avalos (Adult Med) [address] [place] [address] [id number] 0 10/21/2015 14:33:18 10/21/2015 17:47:09 Dizziness of unknown cause 477033958 R42 Chronic constipation 236 527866 K59.00 Use OTC laxative [id number] MD Allyson Avalos (Adult Med) [address] [place] [address] [id number] 0 12/31/2015 14:18:54 12/31/2015 16:03:34 Administration of influenza vaccine 05802006 Z23 Anxiety disorder 9533312 06 F41.9 Chronic constipation 236 010299 K59.00 Use OTC laxative Adult heal th examination 964217870 Z00.01 Pain of hip region 62260 002 M25.552 Paresthesia of hand 3090 44550 R20.2 Paresthesia of foot 3090 15589 R20.2 [id number] MD Allyson Avalos (Adult Med) [address] [place] [address] [id number] 0 02/12/2016 09:48:00 02/12/2016 11:25:06 Chronic constipation 903639440 K59.00 Mag Citrate works. Discussed weekly use Chest pain 72316458 R07. 9 [id number] MD Allyson Avalos (Adult Med) [address] [place] [address] [id number] 06/09/2016 14:57:14 06/09/2016 16:06:27 Chronic constipation 861982151 K59.00 Mag Citrate works. Discussed weekly use Dizziness of unknown cause 693644096 R42 Degenerati ve polyarthritis 398291082 M19.90 [id number] MD Allyson Avalos (Adult Med) [address] [place] [address] [id number] 0 10/21/2016 12:08:25 10/21/2016 18:08:48 Paresthesia of hand 329977137 R20.2 Paresthesia of foot 3090 97448 R20.2 Degenerati ve polyarthritis 256770079 M19.90 Dizziness of unknown cause 928277734 R42 [id number] Lora Cadet MD [facility] (Adult Med) [address] [place] [address] [id number] 0 04/22/2017 11:34:11 04/22/2017 13:20:52 Degenerative polyarthritis 682217753 M19.90 Allergic rhinitis 968216 04 J30.9 Paresthesia of hand 3090 06419 R20.2 Vitamin D deficiency 347 81124 E55.9 Dizziness of unknown cause 945207176 R42 Osteoporosis 71448059 M8 1.0 Had been on Actonel daily Cramp in limb 901889449 R25.2 Supplement al Ca 1000mg/d [id number] Lora Cadet MD [facility] (Adult Med) [address] [place] [address] [id number] 06/01/2017 12:15:09 06/01/2017 16:04:45 Bronchopneumonia 494278837 J18.0 Complete antibiotic therapy Ex-smoker 1652119 Z87.89 1 Allergic rhinitis 841545 04 J30.9 Recommende d HS diphenhydr amine 25 mg [id number] MD Allyson Avalos (Adult Med) [address] [place] [address] [id number] 0 11/09/2017 11:16:26 11/09/2017 13:09:19 Cramp in limb 008941451 R25.2 Supplement al Ca 1000mg/d Osteoporosis 72239317 M8 1.0 Had been on Actonel daily Anxiety disorder 4477072 06 F41.9 Degenerati ve polyarthritis 802670424 M19.90 [id number] MD Allyson Avalos (Adult Med) [address] [place] [address] [id number] 0 09/26/2018 09:39:43 09/27/2018 10:18:38 Insomnia 190435000 G47.00 Degenerati ve polyarthritis 148776330 M19.90 Chronic constipation 236 157202 K59.09 Vitamin D deficiency 347 46773 E55.9 History of osteopenia 47 1305172 Z87.39 Neuropathy 117207625 G62 .9 [id number] MD Allyson Avalos (Adult Med) [address] [place] [address] [id number] 0 10/17/2018 15:21:05 10/18/2018 12:31:54 Elevated blood-pressure reading without diagnosis of hypertension 934908197 R03.0 continue metoprolol Pruritic disorder 879562 002 L29.9 Insomnia 348318428 G47.0 0 Stop zolpidem. May use hydroxyzin e at HS. [id number] MD Allyson Avalos (Adult Med) [address] [place] [address] [id number] 0 11/15/2018 15:53:00 11/16/2018 10:15:29 Degenerative polyarthritis 365833001 M19.90 Vitamin D deficiency 347 57780 E55.9 Insomnia 754032299 G47.0 0 Suggested restarting zolpidem. [id number] MD Allyson Avalos (Adult Med) [address] [place] [address] [id number] 12/05/2018 09:47:51 12/06/2018 16:29:29 Pharyngitis 649722308 J02.9 Will refer to ENT if no improvemen t in one week Insomnia 905905007 G47.0 0 Suggested restarting zolpidem. Vitamin D deficiency 347 05753 E55.9 [id number] MD Allyson Avalos (Adult Med) [address] [place] [address] [id number] 0 02/15/2019 12:37:23 02/16/2019 10:41:30 Diarrhea 27919646 R19.7 Acute History of melena 640777 004 Z87.19 Abdominal pain 83053908 R10.9 Abdominal bloating 69690 9008 R14.0 [id number] MD Allyson Avalos (Adult Med) [address] [place] [address] [id number] 0 05/30/2019 16:31:38 05/31/2019 11:21:04 Cramp in limb 331226043 R25.2 Supplement al Ca 1000mg/d Degenerati ve polyarthritis 061005745 M19.90 Pain of ri ght shoulder joint 1601074208 1859634 M25.842 [id number] GAEL Jansen NP [facility] [address] [place] [address] 09/06/2019 15:24:50 09/07/2019 09:24:32 Suspected COVID-19 017759440 Z03.818 D/w pt the current pandemic of COVID-19 and call for social isolation in order to blunt the curve and minimize risk and spread. Encouraged patient and family to take restrictio ns seriously. They have verbalized understand ing of such. Viral syndrome 399787871 B34.9 [id number] MD Allyson Hogan (Adult Med) [address] [place] [address] [id number] 0 12/25/2019 13:48:21 12/25/2019 14:46:24 Insomnia 424931682 G47.00 [place] and CDA neededSide effects were discussed, including but not limited to dementia and other neuropsych iatric effects. Cardiac pa cemaker in situ 995898370 Z95.0 Chronic at rial fibrillation 252428399 I48.20 Medication monitoring 39 4088763 Z51.81 Chronic back pain 156064 002 G89.29 [place] and CDA needed Side effects were discussed Chronic constipation 236 120049 K59.09 [id number] MD Allyson Avalos (Adult Med) [address] [place] [address] [id number] 0 04/03/2020 10:10:37 04/04/2020 10:05:17 Essential hypertension 24190074 I10 Vitamin D deficiency 347 95061 E55.9 History of osteopenia 47 4965655 Z87.39 Chronic at rial fibrillation 996891221 I48.20 F/u with cardiology Fatigue 97244972 R53.83 [id number] MD Allyson Avalos (Adult Med) [address] [place] [address] [id number] 0 09/18/2020 11:34:50 09/19/2020 12:11:53 Diarrhea 10487079 R19.7 Dysphagia 15270038 R13.1 0 [id number] MD Allyson Avalos (Adult Med) [address] [place] [address] [id number] 0 11/18/2020 16:15:12 11/22/2020 05:48:33 Degenerative polyarthritis 233813907 M19.90 Cont Hydrocodon e [id number] MD Allyson Avalos (Adult Med) [address] [place] [address] [id number] 0 01/09/2021 10:07:25 01/14/2021 13:38:14 Insomnia 902447080 G47.00 [id number] MD Allyson Avalos (Adult Med) [address] [place] [address] [id number] 0 04/10/2021 15:42:27 04/11/2021 14:14:49 Insomnia 954648496 G47.00 [id number] MD Allyson Avalos (Adult Med) [address] [place] [address] [id number] 0 07/21/2021 15:41:09 07/22/2021 09:36:59 Chronic constipation 849156722 K59.09 Hold fiber. Continue polyethyle ne glycol [id number] MD Allyson Avalos (Adult Med) [address] [place] [address] [id number] 0 07/28/2021 11:28:26 07/29/2021 13:06:18 Chronic constipation 641089042 K59.09 Hold fiber. Continue polyethyle ne glycol Nausea 441771565 R11.0 [id number] MD Allyson Avalos (Adult Med) [address] [place] [address] [id number] 0 08/14/2021 11:57:28 08/15/2021 12:06:34 Nausea 456668081 R11.0 Chronic constipation 236 181917 K59.09 Hold fiber. Continue polyethyle ne glycol [id number] MD Allyson Avalos (Adult Med) [address] [place] [address] [id number] 0 10/22/2021 14:30:15 10/22/2021 15:37:07 Insomnia 925301805 G47.00 [id number] MD Allyson Avalos (Adult Med) [address] [place] [address] [id number] 0 12/15/2021 11:49:34 12/16/2021 08:09:01 Syncope 596290985 R55 Headache 12417592 R51.9 [id number] MD Allyson Avalos (Adult Med) [address] [place] [address] [id number] 0 01/06/2022 10:25:48 01/07/2022 12:58:51 Chronic atrial fibrillation 289699446 I48.20 F/u with cardiology [id number] MD Allyson Avalos (Adult Med) [address] [place] [address] [id number] 0 04/14/2022 11:41:16 04/15/2022 17:00:26 Chronic atrial fibrillation 631542291 I48.20 F/u with cardiology . Continue current metoprolol dose Essential hypertension 16051877 I10 Edema of lower leg 55158 7004 R60.0 Anxiety disorder 9794592 06 F41.9 [id number] MD Allyson Avalos (Adult Med) [address] [place] [address] [id number] 0 07/13/2022 13:48:47 07/14/2022 10:20:35 Overweight 804384477 E66.3 Bronchitis 93372531 J40 Lower gastrointestinal hemorrhage 86925436 K92.2 Hyperlipidemia 97119262 E78.5 Discussed dietary modificati on [id number] MD Allyson Avalos (Adult Med) [address] [place] [address] [id number] 0 09/10/2022 14:38:36 09/16/2022 10:57:35 Overweight 667512592 E66.3 Lung mass 358453096 R91. 8 Injury of right hand 865 3877623 1829417 S69.91XA Gastroesop hageal reflux disease 014448258 K21.9 Insomnia 105968990 G47.0 0 [id number] MD Allyson Avalos (Adult Med) [address] [place] [address] [phone] 0 10/22/2022 12:22:49 10/26/2022 10:09:22 Overweight 206702363 E66.3 Neck pain 25668436 M54.2 F/U with pain management Pain of hip region 55033 002 M25.552 Feeling stressed 7477198 06 Z73.3 Currently on alprazolam Insomnia 091325143 G47.0 0 Needs PA sent [id number] MD Allyson Avalos (Adult Med) [address] [place] [address] [phone] 0 02/22/2023 12:33:36 02/23/2023 11:34:33 Essential hypertension 16065614 I10 Has been more anxious recently. BP at home usually normal Depressive disorder 3548 9007 F32.9 F/U BH Anxiety disorder 6761740 06 F41.9 Hyperglycemia 14777349 R 73.9 Hyperlipidemia 49810131 E78.5 Discussed dietary modificati on [id number] MD Allyson Avalos (Adult Med) [address] [place] [address] [phone] 0 06/23/2023 14:01:22 06/24/2023 20:44:32 Overweight 491427765 E66.3 Insomnia 767536437 G47.0 0 [id number] MD Allyson Avalos (Adult Med) [address] [place] [address] [phone] 0 10/21/2023 13:50:50 10/21/2023 20:57:54 Overweight 842425621 E66.3 Essential hypertension 79150460 I10 Has been more anxious recently. BP at home usually normal. No BP meds currently. Will observe Feeling stressed 5796185 06 Z73.3 Started smoking Headache 51212666 R51.9 Allergic rhinitis 854203 04 J30.9 Recommende d HS diphenhydr amine 25 mg Bronchitis 91472303 J40 Ex-smoker 8939585 Z87.89 1 Stopped in 2013. Restarted 09/19 Insomnia 321060705 G47.0 0 [id number] MD Allyson Avalos (Adult Med) [address] [place] [address] [phone] 0 02/07/2024 15:01:33 02/08/2024 13:15:52 Bronchitis 30648422 J40 Pain 54247854 R52 Insomnia 000340813 G47.0 0 Essential hypertension 94365833 I10 [id number] MD Allyson Avalos (Adult Med) [address] [place] [address] [phone] 0 04/10/2024 14:21:39 04/19/2024 14:03:04 Bronchitis 08964012 J40 Allergic rhinitis 656196 04 J30.9 Recommende d HS diphenhydr amine 25 mg Essential hypertension 02243115 I10 Feeling stressed 4121268 06 Z73.3 Hyperglycemia 50681186 R 73.9 Insomnia 442122647 G47.0 0 Hemoptysis 11055001 R04. 2 [id number] MD Allyson Avalos (Adult Med) [address] [place] [address] [phone] 0 05/30/2024 10:57:16 06/01/2024 13:06:11 Insomnia 809502612 G47.00 Neuropathy 110781669 G62 .9 [id number] MD Allyson Avalos (Adult Med) [address] [place] [address] [phone] 0 08/31/2024 10:08:22 09/01/2024 14:24:12 Neuropathy 068336356 G62.9 Insomnia 164825354 G47.0 0 Health Concerns Section Related Observation LastModified by Organization Detai ls LastModified Time None Recorded Concern Status LastModified by Organization Details LastModified Time None Recorded Advance Directives Directive None Recorded Payers Insurance Date Sequence Insurance Name Policy Number Policy Howard Covered Member ID Howard Member ID Guarantor Name 07/13/2024 2 [place] Fabi Schmid [id number] Fabi Schmid 10/21/2023 [place]QHC Fabi Schmid [id number] Fabi Schmid 10/21/2023 [place] Fabi Schmid [id number] Fabi Schmid 10/21/2023 1 [place] Fabi Schmid [id number] Fabi Schmid 04/11/2024 2 [place]PLACEMENT PRIMARY) Fabi Schmid [id number] Fabi Schmid 10/21/2023 2 [place] Fabi Schmid [id number] Fabi Wuley 10/21/2023 1 [employer] (MEDICARE REPLACEMENT/AD VANTAGE - PPO) Fabi Sharmaine [id number] Fabi Schmid 10/21/2023 1 [place] Fabi Sharmaine [id number] Fabi Schmid 10/21/2023 2 [place] [facility] Fabi Sharmaine [id number] Fabi Sharmaine 10/21/2023 [place] [facility] Fabi Wuley [id number] Fabi Schmid 08/28/2024 1 [facility] (MEDICARE REPLACEMENT/AD VANTAGE - HMO) [id number] Fabi Sharmaine [id number] Fabi Sharmaine 08/28/2024 2 [place]PLACEMENT PR[place]) Fabi Sharmaine [id number] Fabi Sharmaine 08/28/2024 [place] [facility] Fabi Sharmaine [id number] Fabi Sharmaine 10/21/2023 1 [employer] (MEDICARE REPLACEMENT/AD VANTAGE - PPO) Fabi Sharmaine [id number] Fabi Sharmaine 10/21/2023 2 [place]IC[place]PLACEMENT PRIMARY) Fabi Sharmaine [id number] Fabi Schmid Notes Date Note Type Note Provider Name and Address Organization Details Recorded Time 10/21/2023 text/html Here for med refills and disability form completed. Has has more intense frontal headaches in the past month. Started smoking again in the past month Lora Cadet MD Attn: Accounting,[address] [place], [address], [place] 10/21/2023 15:33:18 02/07/2024 text/html has had yellow phlegm production over the past two months. She has pain in the right upper back as if being stuck with a knife. This is not relieved by her oxycodone. She is lighted headed and weak. She had a spider bite on her hairline which is resolving. Lora Cadet MD Attn: Accounting,[address] [facility], [place], [address], [facility] 02/07/2024 16:30:00 04/10/2024 text/html Here for med refills. Has been spitting up am mucus with specks of blood for the past five months. She feels stressed Lora Cadet MD Attn: Accounting,[address] [facility], [place], [address], [facility] 04/10/2024 15:55:44 05/30/2024 text/html Here for routine f/u. Desires to restart gabapentin to calm her legs at night Lora Cadet MD Attn: Accounting,[address] [facility], [place], [address], [facility] 05/30/2024 12:46:44 08/31/2024 text/html Here for f/u. Insurance not covering Zolpidem ER Lora Cadet MD Attn: Accounting,[address] [facility], [place], [address], [facility] 08/31/2024 10:59:02 OBGyn Episode No OBEpisode recorded.
--- OUTSIDE RECORDS SUMMARY | 2025-01-01 09:03 | XMS_ITS | Patient Health Record ---
Author Organization [facility] [employer] Address [address] [place] [address] Care Team Providers Care [employer] Recruiter Name Role Phone Jean-Pierre Narvaez Unavailable [phone] Reason For Referral No Information Medications Medication SIG (Take, Route, Frequency, Duration) Notes Start Date End Date Status ALPRAZolam 0.25 MG Tablet Oral 10/02/2021 Active traZODone HCl 50 MG Tablet Oral 10/02/2021 Active hydroCHLOROthiazide 25 MG Tablet Oral 10/02/2021 Active Linzess 290 MCG Capsule Oral 10/02/2021 Active Carisoprodol 350 MG Tablet Oral 10/02/2021 Active PARoxetine HCl 20 MG Tablet Oral 10/02/2021 Active busPIRone HCl 5 MG Tablet Oral 10/02/2021 Active Stonega Carbonate ER 300 MG Tablet Extended Release Oral 10/02/2021 Acti ve Omeprazole 40 MG Capsule Delayed Release Oral 10/02/2021 Active Zolpidem Tartrate 10 MG Tablet Oral 2 Active hydrOXYzine HCl 25 MG Tablet Oral 10/02/2021 Active HYDROcodone-Acetaminophen 10-325 MG Tablet Oral 10/02/2021 Active Eliquis 5 MG Tablet Oral 10/02/2021 Active Ondansetron HCl 4 MG Tablet Oral 10/02/2021 Active clonazePAM 0.5 MG Tablet Oral 10/02/2021 Active Social History Social History Additional Details Category Social Info Options Details Migrated Social History Migrated Social History Alcohol Intake: None 10/02/2021,Tobacco Years: Current every day smoker 10/02/2021,Smoking Status: 28 10/02/2021 Plan Of Treatment No Information Insurance Providers Payer Name Payer Address Payer Phone Subscriber Number Group Number Insured Name Patient Relationship to Insured Coverage Start Date Coverage End Date [facility] Medicare Replacemen t/Advantag e - Hmo [address] [place] [phone] [id number] HIMANSHU MARILOU Self - patient is the insured Medicaid-[place] l Medicaid [address] [address] [place] [address] [id number] MARILOU DOWNS Self - patient is the insured Human Medicare Replacemen t/Advantag e - Ppo [address] [address] [place] [address] [id number] HIMANSHURENETTAMARILOU Self - patient is the insured Medical (General) History Surgical History Surgery Date(Month/Year) Other Hysterectomy (80034) Cataract surgery (33319)
[2025-01-01 09:59] LABS: Hematocrit 41.6 % (37.0-47.0); Hemoglobin 13.5 g/dL (12.0-15.0); Immature Granulocyte Percent A 0.4 % (0-0.5); Lymphocytes Absolute Auto 2.04 K/mm3 (0.9-3.2); Mean Corpuscular HGB Conc 32.5 g/dl (32-36); Mean Corpuscular Hemoglobin 29.4 pg (26-34); Mean Corpuscular Volume 90.6 fl (80-100); Nucleated Red Blood Cells Absolute Auto 0.000 K/mm3 (0.0-0.012); Nucleated Red Blood Cells Perc 0.0 % (0.0-0.2); Platelet Count Result 288 k/mm3 (150-375); Red Blood Count 4.59 M/mm3 (4.2-5.4); White Blood Count 7.3 K/mm3 (4.5-10.0)
[2025-01-01 10:21] LABS: Alanine Aminotransferase 16 U/L (6-35); Albumin Level 4.4 g/dL (3.5-5.1); Alkaline Phosphatase 98 U/L (38-126); Anion Gap 9 mmol/L (4-12); Aspartate Amino Transferase 30 U/L (14-36); Bilirubin,Total 0.6 mg/dL (0.2-1.3); Blood Urea Nitrogen 11 mg/dL (7-17); Calcium 9.3 mg/dL (8.4-10.2); Carbon Dioxide 24 mmol/L (22-30); Chloride 108 mmol/L (98-107); Cholesterol 226 mg/dL (0-200); Estimated Glomerular Filt Rate > 60; Glucose 99 mg/dL (65-110); HDL Direct 73 mg/dL; Potassium 4.0 mmol/L (3.4-5.0); Sodium 141 mmol/L (137-145); Total Protein 7.5 g/dL (6.3-8.2); Triglycerides 82 mg/dL (<150)
[2025-01-01 10:27] LABS: MALB Creatinine Ratio 14.1 mg/g (0-30)
[2025-01-01 10:38] LABS: Free T4 Free Thyroxine 1.30 ng/dL (0.78-2.19); Hemoglobin A1C 5.8 % (<5.7)
[2025-01-01 10:57] LABS: Thyroid Stimulating Hormone 0.397 uIU/mL (0.465-4.680)
== END 2025-01-01 08:18 | disposition home or self-care (01) ==
PROVIDERS: PCP Internal Medicine; Visit Provider Internal Medicine
DX: R79.89 Other specified abnormal findings of blood chemistry (principal); I10 Essential (primary) hypertension; Z87.898 Personal history of other specified conditions
CPT/HCPCS: 36415; 80053; 80061; 82043; 83036; 84439; 84443; 85025